=== PATIENT | male | born 1945 | race Caucasian/White ===

== ENCOUNTER 2024-03-03 11:37 | Inpatient (IN) | payer OTHER, SELFPAY ==
[2024-03-03 13:11] LABS: Absolute Monocytes 0.7 K/uL (0.1-1.3); Absolute Neutrophil 4.4 K/uL (1.8-8.0); Basophils % 0.4 % (0-1.3); Eosinophils % 0.7 % (0-4.4); Hematocrit 45.4 % (39.6-49.0); Lymphocytes % 15.9 % (15.3-44.8); MCHC 32.9 g/dL (32.0-36.0); MCV 91.3 fL (80-100); MPV 9.5 fL (7.6-11.3); PT Prothrombin Time 11.2 SECONDS (9.4-12.5); PTT, Activated Partial Thromb 26.9 SECONDS (24.3-36.9); Platelets 141 thou/uL (152-406); RBC Red Blood Cell Count 4.98 M/uL (4.33-5.43); Red Cell Distribution Width 13.6 % (12.1-15.2)
[2024-03-03 13:26] LABS: Albumin 3.5 g/dL (3.4-5.0); Bilirubin Total 0.5 mg/dL (0.2-1.0); Globulin 3.5 g/dL (2.3-3.5); Troponin High Sensitivity 12.7 pg/mL (<58.9)
--- NOTE | 2024-03-03 13:40 | RAD REPORT ---
EXAM: CT brain without contrast HISTORY: Confusion/alteration of consciousness. COMPARISON: None TECHNIQUE: Multiple contiguous axial images were obtained and a CT of the brain without contrast.. Sagittal and coronal reconstruction performed. Automated exposure control, adjustment of the mA and/or kV according to patient size, and/or iterative reconstruction. Unless otherwise specified, incidental f indings do not require dedicated imaging follow-up FINDINGS: An intracranial bleed is not seen Ventricles are moderately dilated. No extra-axial fluid collection noted 2 cm low-density area left frontal lobe has the appearance of margin. No fluid within the visualized sinuses or mastoids noted. IMPRESSION: Moderate dilatation of the ventricles probably the sequela of cerebral atrophy. Normal pressure hydro cephalus can also have this appearance and should be correlated clinically.
--- NOTE | 2024-03-03 14:03 | RAD REPORT ---
Procedure: Chest Single View HISTORY: Weakness COMPARISON: none FINDINGS: The lungs appear clear of acute infiltrate. No significant pleural effusion noted. The heart is normal size. IMPRESSION: No acute abnormality is displayed.
--- NOTE | 2024-03-03 14:30 | ER ---
Nurse's Notes [facility] Name: Georgi Soriano Age: 79 yrs Sex: Male : 1945 Arrival Date: 03/03/2024 Time: 11:37 Bed 17 Private MD: Diagnosis: Altered mental status, unspecified;Muscle weakness (generalized) Presentation: 03/03 12:01 Chief complaint: EMS states: DIRECTOR OF CASEWORK DEPARTMENT CALLED EMS FOR "NOT ACTING RIGHT". bp Coronavirus screen: At this time, the client does not indicate any symptoms associated with coronavirus-19. Ebola Screen: No symptoms or risks identified at this time. Initial Sepsis Screen: Does the patient meet any 2 criteria? No. Patient's initial sepsis screen is negative. Does the patient have a suspected source of infection? No. Patient's initial sepsis screen is negative. Risk Assessment: Do you want to hurt yourself or someone else? Patient reports no desire to harm self or others. Onset of symptoms is unknown. Care prior to arrival: Glucose check: 140. 12:01 Method Of Arrival: EMS: [facility] bp 12:01 Acuity: TAMMY 3 bp Triage Assessment: 12:02 General: Appears in no apparent distress. comfortable, Behavior is calm, cooperative. bp Pain: Denies pain. EENT: No deficits noted. Neuro: Level of Consciousness is awake, obeys commands, confused, Oriented to person, place. Cardiovascular: Rhythm is sinus rhythm. Respiratory: No deficits noted. GI: No signs and/or symptoms were reported involving the gastrointestinal system. : No signs and/or symptoms were reported regarding the genitourinary system. Derm: No deficits noted. Musculoskeletal: No deficits noted. Historical: - Allergies: 12:02 No Known Allergies; bp - Home Meds: 12:02 Unable to obtain [Active]; bp - PMHx: 12:02 Unable to Obtain; bp - Immunization history:: Adult Immunizations unknown. - Infectious Disease History:: Denies. - Social history:: Smoking status: unknown. - Family history:: not pertinent. - Hospitalizations: : No recent hospitalization is reported. Screenin:00 [facility] ED Fall Risk Assessment (Adult) History of falling in the last 3 months, bp including since admission No falls in past 3 months (0 pts) Confusion or Disorientation No (0 pts) Intoxicated or Sedated No (0 pts) Impaired Gait No (0 pts) Mobility Assist Device Used No (0 pt) Altered Elimination No (0 pt) Score/Fall Risk Level 0 - 2 = Low Risk Oriented to surroundings. Abuse screen: Denies threats or abuse. Denies injuries from another. Nutritional screening: No deficits noted. Tuberculosis screening: No symptoms or risk factors identified. Assessment: 12:05 General: Appears in no apparent distress. Behavior is calm, cooperative. bp 14:00 Reassessment: Patient appears in no apparent distress at this time. No changes from bp previously documented assessment. 15:00 Reassessment: Patient appears in no apparent distress at this time. Patient and/or bp family updated on plan of care and expected duration. Pain level reassessed. 15:45 Reassessment: REPORT FAXED RM 215. bp Vital Signs: 12:01 BP 111 / 65; Pulse 67; Resp 16; Temp 98; Pulse Ox 96% ; bp 15:00 BP 137 / 66; Pulse 59; Resp 16; Temp 97.9; Pulse Ox 99% ; bp NIH Stroke Scale Scores: 13:16 NIHSS Score: 0 airborne operations Course: 11:43 Patient arrived in ED. eb 11:43 Mikel Leo MD is Attending Physician. rn 12:01 Robbie Calle RN is Primary Nurse. bp 12:02 Triage completed. bp 12:02 Arm band placed on. bp 12:35 Chest Single View XRAY In Process Unspecified. EDMS 12:45 Initial lab(s) drawn, by md, sent to lab. First set of blood cultures drawn by me, bp Second set of blood cultures drawn by me, EKG done, by ED staff, reviewed by Mikel Leo MD. Inserted saline lock: 20 gauge in right forearm, using aseptic technique. Blood collected. Flushed with 10 mL NS. 13:21 CT Head Brain wo Cont In Process Unspecified. EDMS 14:28 Fidel Maravilla MD is Hospitalizing Provider. rn 15:00 Patient has correct armband on for positive identification. bp 15:00 No provider procedures requiring assistance completed. bp 15:37 Patient admitted, IV remains in place. bp 16:44 Provided Education on: need for admit. ll1 Administered Medications: 12:46 Drug: NS 0.9% IV 500 ml 500 ml IV at 1 bolus once; to be given as a bolus over 30 bp minutes Volume: 500 ml; Route: IV; Rate: 1 bolus; Site: right forearm; Medication: 15:00 VIS not applicable for this client. bp Outcome: 14:29 Decision to Hospitalize by Provider. rn 16:44 Patient left the ED. ll1 16:44 Admitted to Med/surg ll1 16:44 Condition: stable 16:44 Instructed on the need for admit, NIH Stroke Scale - NIH Stroke Score Date: 03/03/2024 Time: 13:16 Total Score = 0 10. Dysarthria (speech clarity - read or repeat words) - 0(Normal) 11. Extinction and Inattention (visual/tactile/auditory/spatial/personal) - 0(No abnormality) 1a. Level of Consciousness (LOC) - 0(Alert) 1b. Level of Consciousness (LOC) (Month \\T\\ Age) - 0(Both) 1c. LOC Commands (Open \\T\\ Closes Eyes/Home Coordinator) - 0(Both) 2. Best Gaze (Lateral Gaze Paresis) - 0(Normal) 3. Visual Field Loss - 0(No visual loss) 4. Facial Palsy - 0(Normal) 5a. Left Arm: Motor (10-second hold) - 0(No drift) 5b. Right Arm: Motor (10-second hold) - 0(No drift) 6a. Left Leg: Motor (5-second hold - always test supine) - 0(No drift) 6b. Right Leg: Motor (5-second hold - always test supine) - 0(No drift) 7. Limb Ataxia (finger/nose \\T\\ heel/hollins - test with eyes open) - 0(Absent) 8. Sensory Loss (pinprick arms/legs/face) - 0(Normal) 9. Best Language: Aphasia (description/naming/reading) - 0(No aphasia) Initials: rn Signatures: Dispatcher [employer] EDMikel Joseph MD MD rn Peltier, Brian, RN RN bp Botello, Elizabeth eb Lewis, Lynsay, RN RN 1
--- NOTE | 2024-03-03 14:30 | EDPHYS ---
Physician Documentation [facility] Name: Georgi Soriano Age: 79 yrs Sex: Male : 1945 Arrival Date: 03/03/2024 Time: 11:37 Bed 17 Private MD: ED Physician Mikel Leo HPI: 03/03 14:26 This 79 yrs old Male presents to ER via EMS with complaints of weakness, AMS. rn 14:26 The patient presents with confusion, decreased responsiveness. Onset: The rn symptoms/episode began/occurred at an unknown time. Associated signs and symptoms: Pertinent positives: weakness, Pertinent negatives: abdominal pain, chest pain. Current symptoms: In the emergency department the patient's symptoms are unchanged from the initial presentation. The patient has not experienced similar symptoms in the past. Patient was noted to be acting strange with generalized weakness and possibly confusion while riding a bus. sales route driver has seen him before and told EMS he seems weaker than normal. Patient denies focal weakness or numbness. Patient reports feels weak all over. No chest pain or shortness of breath. No abdominal pain. No blood in stool. No new medication. No fever or recent illness.. Historical: - Allergies: 12:02 No Known Allergies; bp - Home Meds: 12:02 Unable to obtain [Active]; bp - PMHx: 12:02 Unable to Obtain; bp - Immunization history:: Adult Immunizations unknown. - Infectious Disease History:: Denies. - Social history:: Smoking status: unknown. - Family history:: not pertinent. - Hospitalizations: : No recent hospitalization is reported. ROS: 14:26 Constitutional: Negative for fever, chills, and weight loss, Eyes: Negative for injury, rn pain, redness, and discharge, Neck: Negative for injury, pain, and swelling, Cardiovascular: Negative for chest pain, palpitations, and edema, Respiratory: Negative for shortness of breath, cough, wheezing, and pleuritic chest pain, Abdomen/GI: Negative for abdominal pain, nausea, vomiting, diarrhea, and constipation, Back: Negative for injury and pain, MS/Extremity: Negative for injury and deformity, Skin: Negative for injury, rash, and discoloration, Neuro: Positive for generalized weakness Exam: 14:26 Constitutional: This is a well developed, well nourished patient who is awake, alert, rn and in no acute distress. Head/Face: Normocephalic, atraumatic. ENT: Dry mucous membranes Cardiovascular: Regular rate and rhythm. No pulse deficits. Respiratory: No increased work of breathing, no retractions or nasal flaring. Abdomen/GI: Soft, non-tender MS/ Extremity: Pulses equal, no cyanosis. Neuro: Awake and alert, GCS 15, oriented to person, place, time, and situation. Cranial nerves II-XII grossly intact. Motor strength 4/5 in all extremities. Sensory grossly intact. Vital Signs: 12:01 BP 111 / 65; Pulse 67; Resp 16; Temp 98; Pulse Ox 96% ; bp 15:00 BP 137 / 66; Pulse 59; Resp 16; Temp 97.9; Pulse Ox 99% ; bp NIH Stroke Scale Scores: 13:16 NIHSS Score: 0 rn MDM: 11:43 Medical Screening Exam initiated rn 13:15 ED course: Sent ECG and attempted to contact advertising vice president Dr. Ivey, waiting for rn callback.. 13:38 ED course: Consulted with Dr. Ivey, states believes his progression of right bundle rn branch block and not STEMI due to negative troponin and patient has, absence of dyspnea or diaphoresis. zero chest pain. he would like a stat echo to check for wall motion abnormalities and will make a decision based off of that.. 14:07 ED course: Dr. Ivey performed a bedside echo with ultrasound machine, reports good EF rn with lack of wall motion abnormalities. He does not believe that this is a STEMI or ischemic event.. 14:26 Differential Diagnosis: CVA, electrolyte abnormality, pneumonia, UTI, volume depletion. rn Data reviewed: vital signs, nurses notes, lab test result(s), EKG, radiologic studies, CT scan, plain films, and as a result, I will admit patient. Consideration of Admission/Observation Patient was admitted/placed on observation. Escalation of care including admission/observation considered. Counseling: I had a detailed discussion with the patient and/or guardian regarding the historical points, exam findings, and any diagnostic results supporting the discharge/admit diagnosis, lab results, radiology results, the need for further work-up and treatment in the hospital. 03/03 11:44 Order name: Blood Culture Adult (2) rn 03/03 11:44 Order name: CBC with Diff; Complete Time: 13:23 rn 03/03 11:44 Order name: CMP; Complete Time: 13:36 rn 03/03 11:44 Order name: Lactate w/ 2H reflex if indic.; Complete Time: 13:36 rn 03/03 11:44 Order name: Protime (+inr); Complete Time: 13:23 rn 03/03 11:44 Order name: Ptt, Activated; Complete Time: 13:23 rn 03/03 11:44 Order name: Urinalysis w/ reflexes rn 03/03 11:44 Order name: Flu; Complete Time: 13:36 rn 03/03 12:31 Order name: LAB Add On eb 03/03 13:06 Order name: Troponin High Sensitivity; Complete Time: 13:36 EDCA 03/03 13:06 Order name: NT PRO-BNP; Complete Time: 13:36 EDCA 03/03 15:49 Order name: CBC with Automated Diff [facility] 03/03 15:49 Order name: CBC with Automated Diff [facility] 03/03 15:49 Order name: Comprehensive Metabolic Panel [facility] 03/03 15:49 Order name: Comprehensive Metabolic Panel [facility] 03/03 15:49 Order name: Lipid Profile [facility] 03/03 15:49 Order name: Lipid Profile [facility] 03/03 15:49 Order name: Troponin High Sensitivity [facility] 03/03 15:49 Order name: Troponin High Sensitivity [facility] 03/03 15:49 Order name: Troponin High Sensitivity [facility] 03/03 15:49 Order name: Troponin High Sensitivity [facility] 03/03 11:44 Order name: CT Head Brain wo Cont; Complete Time: 14:09 03/03 11:44 Order name: Chest Single View XRAY; Complete Time: 14:09 03/03 13:29 Order name: Echo with Doppler [facility] 03/03 11:44 Order name: Accucheck; Complete Time: 12:40 rn 03/03 11:44 Order name: Cardiac monitoring; Complete Time: 12:40 rn 03/03 11:44 Order name: EKG - Nurse/Tech; Complete Time: 12:40 rn 03/03 11:44 Order name: IV Saline Lock - Large Bore; Complete Time: 12:41 rn 03/03 11:44 Order name: Labs collected and sent; Complete Time: 12:41 rn 03/03 11:44 Order name: O2 Per Protocol; Complete Time: 12:41 rn 03/03 11:44 Order name: O2 Sat Monitoring; Complete Time: 12:41 rn 03/03 11:44 Order name: Vital Signs; Complete Time: 12:41 rn Administered Medications: 12:46 Drug: NS 0.9% IV 500 ml 500 ml IV at 1 bolus once; to be given as a bolus over 30 bp minutes Volume: 500 ml; Route: IV; Rate: 1 bolus; Site: right forearm; Disposition Summary: 03/03/24 14:29 Hospitalization Ordered Notes: Hospitalization Status: Observation rn Provider: Fidel Maravilla rn Location: Telemetry/MedSurg (observation) rn Condition: Stable rn Problem: new rn Symptoms: have improved rn Bed/Room Type: Standard rn Room Assignment: 215(03/03/24 15:28) eb Diagnosis - Altered mental status, unspecified rn - Muscle weakness (generalized) rn Forms: - Medication Reconciliation Form rn - SBAR form rn - Leadership Thank You Letter rn NIH Stroke Scale - NIH Stroke Score Date: 03/03/2024 Time: 13:16 Total Score = 0 10. Dysarthria (speech clarity - read or repeat words) - 0(Normal) 11. Extinction and Inattention (visual/tactile/auditory/spatial/personal) - 0(No abnormality) 1a. Level of Consciousness (LOC) - 0(Alert) 1b. Level of Consciousness (LOC) (Month \T\ Age) - 0(Both) 1c. LOC Commands (Open \T\ Closes Eyes/Assistant Credit Manager) - 0(Both) 2. Best Gaze (Lateral Gaze Paresis) - 0(Normal) 3. Visual Field Loss - 0(No visual loss) 4. Facial Palsy - 0(Normal) 5a. Left Arm: Motor (10-second hold) - 0(No drift) 5b. Right Arm: Motor (10-second hold) - 0(No drift) 6a. Left Leg: Motor (5-second hold - always test supine) - 0(No drift) 6b. Right Leg: Motor (5-second hold - always test supine) - 0(No drift) 7. Limb Ataxia (finger/nose \T\ heel/hollins - test with eyes open) - 0(Absent) 8. Sensory Loss (pinprick arms/legs/face) - 0(Normal) 9. Best Language: Aphasia (description/naming/reading) - 0(No aphasia) Initials: rn Signatures: Dispatcher [employer] [facility] Mikel Leo MD MD rn Peltier, Brian, Deja Melo RN Corrections: (The following items were deleted from the chart) 11:45 11:45 Chest Single View+RAD.[email or web address].BRZ ordered. [facility] 14:28 14:26 Constitutional: This is a well developed, well nourished patient who is rn awake, alert, and in no acute distress. Head/Face: Normocephalic, atraumatic. Cardiovascular: Regular rate and rhythm. No pulse deficits. Respiratory: No increased work of breathing, no retractions or nasal flaring. Abdomen/GI: Soft, non-tender MS/ Extremity: Pulses equal, no cyanosis. Neuro: Awake and alert, GCS 15, oriented to person, place, time, and situation. Cranial nerves II-XII grossly intact. Motor strength 4/5 in all extremities. Sensory grossly intact. rn 15:28 14:29 luisito santana
[2024-03-03] MEDS ORDERED: ONDANSETRON 4 MG/2 ML VIAL IV PRN (15:44)
[2024-03-03] MEDS ORDERED: ACETAMINOPHEN 500 MG TAB PO PRN (15:44)
--- NOTE | 2024-03-03 15:52 | P.HP ---
Certification for Inpatient Patient admitted to: Inpatient With expected LOS: >2 Midnights Patient will require the following post-hospital care: None Practitioner: I am a practitioner with admitting privileges, knowledge of patient current condition, hospital course, and medical plan of care. Services: Services provided to patient in accordance with Admission requirements found in Title 42 Section 412.3 of the Code of Federal Regulations <MaravillaNorbertoadrian Narvaez - Last Filed: 03/03/24 15:52> Patient History Date of Service: 03/03/24 <Fidel Maravilla - Last Filed: 03/03/24 15:52> Reason for admission: Altered mental status History of Present Illness: 79-year-old male presented to the emergency room with altered mental status, generalized weakness. He presented by EMS after a director business management reported seeing him with confusion, worse moderate to severe generalized weakness, on physical exam, confused, fever, no chest pain, abdominal pain, nausea vomiting diarrhea, admitted for acute metabolic encephalopathy, altered mental status, generalized weakness <Nayely Blum - Last Filed: 03/06/24 09:03> Allergies No Known Allergies Allergy (Unverified 03/03/24 13:25) Review of Systems 10-point ROS is otherwise unremarkable General: As per HPI <Nayely Blum - Last Filed: 03/06/24 09:03> Physical Examination - Studies Laboratory Data (last 24 hrs) 03/03/24 03/03/24 03/03/24 12:41 12:41 12:41 WBC 6.20 Hgb 15.0 Hct 45.4 Plt Count 141 L PT 11.2 INR 1.00 APTT 26.9 Sodium 142 Potassium 4.0 BUN 32 H Creatinine 1.22 Glucose 133 H Total Bilirubin 0.5 AST 17 ALT 19 Alkaline Phosphatase 53 Microbiology Data (last 24 hrs): 03/03/24 12:41 Nasopharnyx Influenza Type A Antigen Screen - Final 03/03/24 12:41 Nasopharnyx Influenza Type B Antigen Screen - Final <Fidel Maravilla - Last Filed: 03/03/24 15:52> - Physical Exam General: Alert, In no apparent distress, Oriented x2 HEENT: Atraumatic, Normocephalic Neck: Supple, 2+ carotid pulse no bruit Respiratory: Clear to auscultation bilaterally, Normal air movement Cardiovascular: Normal pulses, Regular rate/rhythm, Normal S1 S2 Capillary refill: <2 Seconds Gastrointestinal: Normal bowel sounds, Soft and benign Musculoskeletal: No clubbing, No swelling Integumentary: No breakdown, No significant lesion Neurological: Normal speech, Cranial nerves 3-12 intact, Other (confused), Abnormal gait <Nayely Blum - Last Filed: 03/06/24 09:03> Assessment & Plan - Advance Directives Does patient have a Living Will: No Does patient have a Durable POA for Healthcare: No <Fidel Maravilla - Last Filed: 03/03/24 15:52> - Problems (Diagnosis) (1) Acute cystitis Current Visit: Yes Status: Acute (2) Metabolic encephalopathy Current Visit: Yes Status: Acute (3) Elevated brain natriuretic peptide (BNP) level Current Visit: Yes Status: Acute (4) Right bundle branch block Current Visit: Yes Status: Acute (5) Unsteady gait when walking Current Visit: Yes Status: Acute - Plan Admit to [facility], Confusion, likely secondary to metabolic encephalopathy secondary to UTI, Family notified by [facility]'s department patient was brought to the emergency room Dr. Ivey was consulted, evaluated patient in the emergency room, EKG was revi ewed with the ED physician for right bundle branch block, no chest pain, mildly elevated BNP Telemetry, echo ordered Chest x-ray, CT of the head reviewed negative for acute changes, Fall precautions IV antibiotics, IV fluids for acute cystitis Blood cultures, urine cultures Full code DVT SCDs Cardiac diet Disposition pending hospital course-nurses spoke with patient's yesterday, stated she would be here on Friday, nurse talked to patient's daughter, Discharge Plan: Home - Code Status/Comfort Care Code Status: Full Code Critical Care: No Time Spent Managing PTS Care (In Minutes): 45 Critical Care: No <Nayely Blum - Last Filed: 03/06/24 09:03>
[2024-03-03 17:52] VITALS: BMI 26.6
[2024-03-03] MEDS: D5 0.9 NS 1,000 ML IV SCH (18:33)
[2024-03-03] MEDS: METOPROLOL TARTRATE 5 MG/5 ML INJ IV ONE (21:46)
[2024-03-03] MEDS: METOPROLOL TARTRATE 5 MG/5 ML INJ IV STA (22:10)
[2024-03-04 00:52] LABS: Specific Gravity 1.025 (1.005-1.030); Sqamous Epithelial None Seen /HPF (None Seen); Urine Bacteria <20 /HPF (<20); Urine Bilirubin NEGATIVE (Negative); Urine Blood Negative (Negative); Urine Clarity Extremely Turbid (Clear); Urine Color Light-Yellow (Yellow); Urine Culture Reflex Order REFLEXED; Urine Glucose NEGATIVE (Negative); Urine Ketones NEGATIVE (Negative); Urine Microscopic Reflex YN ORDER UMIC; Urine Mucus Slight /HPF (None Seen); Urine Nitrite NEGATIVE (Negative); Urine Protein TRACE (Negative); Urine Urobilinogen Normal (Normal); Urine WBC >50 /HPF (<5); Urine pH 5.5 (5.0-7.0)
[2024-03-04 04:46] VITALS: O2SAT 96
[2024-03-04 05:35] LABS: Absolute Eosinophils 0.1 K/uL (0-0.5); Absolute Lymphocytes (CBC) 1.3 K/uL (0.7-4.9); Absolute Monocytes 0.9 K/uL (0.1-1.3); Absolute Neutrophil 3.7 K/uL (1.8-8.0); Basophils % 0.6 % (0-1.3); Eosinophils % 1.5 % (0-4.4); Hematocrit 42.6 % (39.6-49.0); Hemoglobin 14.3 g/dL (13.6-17.9); Lymphocytes % 21.7 % (15.3-44.8); MCH 30.5 pg (27.0-35.0); MCHC 33.6 g/dL (32.0-36.0); MCV 90.8 fL (80-100); MPV 8.9 fL (7.6-11.3); Monocytes % 14.3 % (3.3-12.3); Neutrophils % 61.9 % (41.7-73.7); Nucleated Red Blood Cells % 0.1 % (0-0); Platelets 140 thou/uL (152-406); RBC Red Blood Cell Count 4.69 M/uL (4.33-5.43); Red Cell Distribution Width 13.5 % (12.1-15.2)
[2024-03-04 05:55] LABS: ALT/SGPT 17 U/L (16-61); Albumin 3.2 g/dL (3.4-5.0); Albumin/Globulin Ratio 0.9 (1.1-1.8); Alkaline Phosphatase 51 U/L (45-117); Anion Gap 5.8 mEq/L (5.0-15.0); BUN Blood Urea Nitrogen 27 mg/dL (7-18); Bicarbonate 28 mEq/L (21-32); Bilirubin Total 0.4 mg/dL (0.2-1.0); Globulin 3.4 g/dL (2.3-3.5); Glomerular Filtration Rate 88 ml/min (=/>90); Glucose Level 113 mg/dL (74-106); HDL Cholesterol 45 mg/dL (40-60); LDL Cholesterol, Calculated 82 mg/dL (<130); LDL Cholesterol,Calc NonReport 82; Potassium 3.8 mEq/L (3.5-5.1); Protein, Total 6.6 g/dL (6.4-8.2); Sodium Level 144 mEq/L (136-145); Troponin High Sensitivity 15.3 pg/mL (<58.9)
[2024-03-04 06:00] LABS: AST/SGOT < 10 U/L (15-37)
--- NOTE | 2024-03-04 09:22 | P.PN ---
Subjective Date of Service: 03/04/24 Confused, admitted with altered mental status, generalized weakness, Review of Systems General: As per HPI Physical Examination - Vital Signs Temperature: 97.5 F Blood Pressure: 178/86 Pulse: 56 Respirations: 18 Pulse Ox (%): 96 - Physical Exam General: Alert, In no apparent distress, Oriented x1, Other HEENT: Atraumatic, Normocephalic Neck: Supple, JVD not distended Respiratory: Clear to auscultation bilaterally, Normal air movement Cardiovascular: Normal pulses, Regular rate/rhythm, Normal S1 S2 Capillary refill: <2 Seconds Gastrointestinal: Normal bowel sounds, Soft and benign Musculoskeletal: Other (Generalized weak) Integumentary: No breakdown, No significant lesion Neurological: Normal speech, Normal strength at 5/5 x4 extr, Other (Generalized weak), Abnormal gait - Studies Laboratory Data (last 24 hrs) 03/03/24 03/03/24 03/03/24 12:41 12:41 12:41 WBC 6.20 Hgb 15.0 Hct 45.4 Plt Count 141 L PT 11.2 INR 1.00 APTT 26.9 Sodium 142 Potassium 4.0 BUN 32 H Creatinine 1.22 Glucose 133 H Total Bilirubin 0.5 AST 17 ALT 19 Alkaline Phosphatase 53 Microbiology Data (last 24 hrs): 03/03/24 12:41 Nasopharnyx Influenza Type A Antigen Screen - Final 03/03/24 12:41 Nasopharnyx Influenza Type B Antigen Screen - Final Assessment And Plan - Current Problems (Diagnosis) (1) Acute cystitis Current Visit: Yes Status: Acute (2) Metabolic encephalopathy Current Visit: Yes Status: Acute (3) Elevated brain natriuretic peptide (BNP) level Current Visit: Yes Status: Acute (4) Right bundle branch block Current Visit: Yes Status: Acute (5) Unsteady gait when walking Current Visit: Yes Status: Acute - Plan Admit to [facility], Confusion, likely secondary to metabolic encephalopathy secondary to UTI, Family notified by Associate Financial Analyst's department patient was brought to the emergency room Dr. Ivey was consulted, evaluated patient in the emergency room, EKG was revi ewed with the ED physician for right bundle branch block, no chest pain, mildly elevated BNP Telemetry, echo ordered Chest x-ray, CT of the head reviewed negative for acute changes, Fall precautions IV antibiotics, IV fluids for acute cystitis Blood cultures, urine cultures Full code DVT SCDs Cardiac diet Disposition pending hospital course-nurses spoke with patient's yesterday, stated she would be here on Friday, nurse talked to patient's daughter, Discharge Plan: Home - Code Status/Comfort Care Code Status: Full Code Critical Care: No Time Spent Managing PTS Care (In Minutes): 25
[2024-03-04] MEDS: NA CHLORIDE 0.9% 1,000 ML IV SCH (21:44)
[2024-03-05] MEDS: HYDRALAZINE HCL 20 MG/ML VIAL IV PRN (05:02)
[2024-03-05 05:40] LABS: Anion Gap 7.6 mEq/L (5.0-15.0); Potassium 3.6 mEq/L (3.5-5.1); Troponin High Sensitivity 16.3 pg/mL (<58.9)
[2024-03-05] MEDS: HYDRALAZINE HCL 25 MG TABLET PO PRN (16:08)
--- NOTE | 2024-03-05 18:06 | P.PN ---
Date of Service: 03/05/24 Subjective Confused, admitted with altered mental status, generalized weakness, Review of Systems General: As per HPI Physical Examination - Vital Signs Reviewed - Physical Exam General: Alert, In no apparent distress, Oriented x 2 HEENT: Atraumatic, Normocephalic Respiratory: Clear to auscultation bilaterally, Normal air movement Cardiovascular: Normal pulses, Regular rate/rhythm, Normal S1 S2 Gastrointestinal: Normal bowel sounds, Soft and benign Musculoskeletal: Other (Generalized weak) Neurological: Normal speech, Normal strength at 5/5 x4 extr, Other (Generalized weak), Abnormal gait Assessment And Plan - Current Problems (Diagnosis) (1) Acute cystitis Current Visit: Yes Status: Acute (2) Metabolic encephalopathy Current Visit: Yes Status: Acute (3) Elevated brain natriuretic peptide (BNP) level Current Visit: Yes Status: Acute (4) Right bundle branch block Current Visit: Yes Status: Acute (5) Unsteady gait when walking Current Visit: Yes Status: Acute - Plan Admit to [facility], Confusion, likely secondary to metabolic encephalopathy secondary to UTI, Family notified by Operating Systems Programmer's department patient was brought to the emergency room Raslan consulted, evaluated patient in the emergency room, EKG was reviewed with the ED physician for right bundle branch block, no chest pain, mildly elevated BNP Telemetry, echo ordered Chest x-ray, CT of the head reviewed negative for acute changes, Fall precautions IV antibiotics, IV fluids for acute cystitis Blood cultures, urine cultures Full code DVT SCDs Cardiac diet Disposition pending hospital course-nurses spoke with patient's yesterday, stated she would be here on Friday, nurse talked to patient's daughter, Discharge Plan: Home - Code Status/Comfort Care Code Status: Full Code Critical Care: No Time Spent Managing PTS Care (In Minutes): 25
[2024-03-05] MEDS: CEFTRIAXONE 2,000 MG in NA CHLORIDE 0.9% 100 ML IV SCH (20:05)
[2024-03-06 06:11] LABS: Anion Gap 7.8 mEq/L (5.0-15.0); Potassium 3.8 mEq/L (3.5-5.1); Troponin High Sensitivity 13.3 pg/mL (<58.9)
--- NOTE | 2024-03-06 08:58 | P.DS ---
Admission Date: 03/03/24 Discharge Date: 03/06/24 Disposition: DC HOME/HOME HEALTH CARE Discharge Condition: GOOD - Problems (1) Acute cystitis Status: Acute (2) Metabolic encephalopathy Status: Acute (3) Elevated brain natriuretic peptide (BNP) level Status: Acute (4) Right bundle branch block Status: Acute (5) Unsteady gait when walking Status: Acute Brief History of Present Illness: 79-year-old male presented to the emergency room with altered mental status, generalized weakness. He presented by EMS after a business risk consultant reported seeing him with confusion, worse moderate to severe generalized weakness, on physical exam, confused, fever, no chest pain, abdominal pain, nausea vomiting diarrhea, admitted for acute metabolic encephalopathy, altered mental status, generalized weakness - Physical Exam General: Alert, In no apparent distress, Oriented x1, Other HEENT: Atraumatic, Normocephalic Neck: Supple, JVD not distended Respiratory: Clear to auscultation bilaterally, Normal air movement Cardiovascular: Normal pulses, Regular rate/rhythm, Normal S1 S2 Capillary refill: <2 Seconds Gastrointestinal: Normal bowel sounds, Soft and benign Musculoskeletal: Other (Generalized weak) Integumentary: No breakdown, No significant lesion Neurological: Normal speech, Normal strength at 5/5 x4 extr, Other (Generalized weak), Abnormal gait Hospital Course: 79-year-old male presented to the emergency room with altered mental status, generalized weakness. He presented by EMS after a business risk consultant reported seeing him with confusion, worse moderate to severe generalized weakness, on physical exam, confused, fever, no chest pain, abdominal pain, nausea vomiting diarrhea, admitted for acute metabolic encephalopathy, altered mental status, generalized weakness, family was notified of [facility] inpatient hospitalization. Patient was noted to have acute cystitis, metabolic encephalopathy, elevated BNP, right bundle branch block, unsteady gait. He was evaluated by PT, cardiology, started on IV antibiotics. Improved during hospitalization, evaluated by PT, tolerating diet, stable to discharge home, follow-up with PCP in 1 week. Plan to discharge home with home health, physical therapy, shelter for unsteady gait Assessment Metabolic encephalopathy -mentation improving on antibiotics. Secondary to UTI treated with IV antibiotics, will discharge home on p.o. antibiotics Acute cystitis discharged home on p.o. antibiotics Elevated BNP/right bundle branch block was evaluated by cardiology while inpatient, no intervention needed Unsteady gait nutrition worker did a welfare check at home to evaluate living condition. GOAL: Clear understanding of disease process INSTRUCTIONS: Physician Discharge Instructions: -Follow-up with PCP in 1 to 2 weeks -Please call Dr. Maravilla at [phone] if any questions regarding hospital stay -Please call nursing station at [phone] if any nursing or medication ques tions -Return to the emergency room if symptoms worsen Diet: ADA, low sodium Activity: Fall precautions Vital Signs/Physical Exam: Temp Pulse Resp BP Pulse Ox 98 F 71 16 140/64 95 03/06/24 04:00 03/06/24 04:00 03/06/24 04:00 03/06/24 04:00 03/06/24 04:00 Laboratory Data at Discharge: WBC 6.00 thou/uL (4.3-10.9) 03/04/24 05:20 Hgb 14.3 g/dL (13.6-17.9) 03/04/24 05:20 Hct 42.6 % (39.6-49.0) 03/04/24 05:20 Plt Count 140 thou/uL (152-406) L 03/04/24 05:20 PT 11.2 SECONDS (9.4-12.5) 03/03/24 12:41 INR 1.00 03/03/24 12:41 APTT 26.9 SECONDS (24.3-36.9) 03/03/24 12:41 Sodium 137 mEq/L (136-145) 03/06/24 05:29 Potassium 3.8 mEq/L (3.5-5.1) 03/06/24 05:29 BUN 13 mg/dL (7-18) 03/06/24 05:29 Creatinine 0.65 mg/dL (0.70-1.30) L 03/06/24 05:29 Glucose 121 mg/dL (74-106) H 03/06/24 05:29 Total Bilirubin 0.4 mg/dL (0.2-1.0) 03/04/24 05:20 AST < 10 U/L (15-37) L 03/04/24 05:20 ALT 17 U/L (16-61) 03/04/24 05:20 Alkaline Phosphatase 51 U/L (45-117) 03/04/24 05:20 Triglycerides 115 mg/dL (<150) 03/04/24 05:20 Cholesterol 150 mg/dL (<200) 03/04/24 05:20 HDL Cholesterol 45 mg/dL (40-60) 03/04/24 05:20 Cholesterol/HDL Ratio 3.33 03/04/24 05:20 Home Medications: Amox/Clavulanate [Augmentin 875-125 Tab] 875 mg PO BID #10 tab 03/06/24 Amox/Clavulanate [Augmentin 875-125 Tab] 875 mg PO BID #10 tab 03/06/24 New Medications: Amox/Clavulanate [Augmentin 875-125 Tab] 875 mg PO BID #10 tab Amox/Clavulanate [Augmentin 875-125 Tab] 875 mg PO BID #10 tab Physician Discharge Instructions: PROBLEM: Confusion, urinary tract infection GOAL: Clear understanding of disease process INSTRUCTIONS: Diet: Low sodium Activity: Fall precautions COMMUNITY SERVICES Services Needed: Home Health [facility] Name of Company: [employer] Date or Referral: 03/06/24 79-year-old male presented to the emergency room with altered mental status, ge neralized weakness. He presented by EMS after a business risk consultant reported seeing him with confusion, worse moderate to severe generalized weakness, on physical exam, confused, fever, no chest pain, abdominal pain, nausea vomiting diarrhea, admitted for acute metabolic encephalopathy, altered mental status, generalized weakness, family was notified of [facility] department inpatient hospitalization. Patient was noted to have acute cystitis, metabolic encephalopathy, elevated BNP, right bundle branch block, unsteady gait. He was evaluated by PT, cardiology, started on IV antibiotics. Improved during hospitalization, evaluated by PT, tolerating diet, stable to discharge home, follow-up with PCP in 1 week. Plan to discharge home with home health, physical therapy, shelter for unsteady gait Assessment Metabolic encephalopathy -mentation improving on antibiotics. Secondary to UTI treated with IV antibiotics, will discharge home on p.o. antibiotics Acute cystitis discharged home on p.o. antibiotics Elevated BNP/right bundle branch block was evaluated by cardiology while inpatient, no intervention needed Unsteady gait nutrition worker did a welfare check at home to evaluate living condition. GOAL: Clear understanding of disease process INSTRUCTIONS: Physician Discharge Instructions: -Follow-up with PCP in 1 to 2 weeks -Please call Dr. Maravilla at [phone] if any questions regarding hospital stay -Please call nursing station at [phone] if any nursing or medication questions -Return to the emergency room if symptoms worsen Diet: ADA, low sodium Activity: Fall precautions Diet: Low sodium Activity: Fall precautions Followup: NONE,NONE [Primary Care Provider] - Shahid Ivey MD [ACTIVE - CAN ADMIT] - [facility] [UNKNOWN] - Time spent managing pt's care (in minutes): 45
[2024-03-06 09:14] VITALS: BP 171/79; TEMP 98.7
--- NOTE | 2024-03-07 14:19 | EKG ---
Test Date: 2024-03-03 Test Time: 12:27:48 [employer]: BP MEASUREMENT RESULTS: Intervals: Rate: 59 ND: 256 QRSD: 170 QT: 472 QTc: 467 [place]: P: 57 ND: 256 QRS: -75 T: -40 INTERPRETIVE STATEMENTS: Sinus bradycardia with 1st degree AV block Right bundle branch block Left anterior fascicular block Bifascicular block Voltage criteria for left ventricular hypertrophy Anteroseptal infarct, possibly acute T wave abnormality, consider inferior ischemia Abnormal ECG No previous ECG available for comparison Electronically Signed On 03-07-24 14:15:43 HEALTH/SAFETY JOB TITLES by Shahid Ivey
== END 2024-03-06 17:00 | disposition home health service (06) | DRG 689 ==
LOC: ER 11:37 → 2ND 15:44
PROVIDERS: ADMIT Hospitalist; ATTEND Hospitalist
DX: N30.00 Acute cystitis without hematuria (principal); G93.41 Metabolic encephalopathy; I45.10 Unspecified right bundle-branch block
CPT/HCPCS: 36415; 70450; 71045; 80048; 80053; 80061; 81001; 82947; 83605; 83880; 84484; 85025; 85610; 85730; 87040; 87077; 87086; 87088; 87186; 87804; 93005; 97116; 97163; 97530; 99285; J0360; J0696; J7030; J7042

== ENCOUNTER 2024-07-22 23:01 | Emergency (ER) | payer OTHER, BC ==
[2024-07-22 23:56] LABS: Absolute Lymphocytes (CBC) 0.1 K/uL (0.7-4.9); Absolute Monocytes 0.2 K/uL (0.1-1.3); Absolute Neutrophil 5.3 K/uL (1.8-8.0); Basophils % 0.4 % (0-1.3); Eosinophils % 0.2 % (0-4.4); Hemoglobin 9.7 g/dL (13.6-17.9); Lymphocytes % 1.4 % (15.3-44.8); MCH 30.5 pg (27.0-35.0); MCHC 34.4 g/dL (32.0-36.0); MCV 88.5 fL (80-100); MPV 8.3 fL (7.6-11.3); Monocytes % 2.9 % (3.3-12.3); Neutrophils % 95.1 % (41.7-73.7); Platelets 186 thou/uL (152-406); RBC Red Blood Cell Count 3.17 M/uL (4.33-5.43); Red Cell Distribution Width 13.8 % (12.1-15.2)
[2024-07-23] MEDS ORDERED: NA CHLORIDE 0.9% 1,000 ML ONE (00:01)
[2024-07-23 00:02] LABS: Specific Gravity 1.023 (1.005-1.030); Sqamous Epithelial None Seen /HPF (None Seen); Transitional Epithelial <5 /HPF (None Seen); Urine Bacteria None Seen /HPF (<20); Urine Bilirubin NEGATIVE (Negative); Urine Blood 1+ (Negative); Urine Clarity Extremely Turbid (Clear); Urine Color Light-Yellow (Yellow); Urine Culture Reflex Order NOT NEEDED; Urine Glucose NEGATIVE (Negative); Urine Ketones NEGATIVE (Negative); Urine Microscopic Reflex YN ORDER UMIC; Urine Mucus Slight /HPF (None Seen); Urine Nitrite NEGATIVE (Negative); Urine Protein 1+ (Negative); Urine RBC <5 /HPF (None Seen); Urine Urobilinogen Normal (Normal); Urine pH 5.5 (5.0-7.0)
[2024-07-23 00:15] LABS: Albumin 1.9 g/dL (3.4-5.0); Albumin/Globulin Ratio 0.5 (1.1-1.8); Anion Gap 8.9 mEq/L (5.0-15.0); Bilirubin Total 0.7 mg/dL (0.2-1.0); Globulin 3.7 g/dL (2.3-3.5); Potassium 2.9 mEq/L (3.5-5.1); Protein, Total 5.6 g/dL (6.4-8.2)
[2024-07-23 00:16] LABS: Troponin High Sensitivity 96.6 pg/mL (<58.9)
[2024-07-23 00:21] LABS: Influenza A Ag Negative; Influenza B Ag Negative; SARS-CoV-2 Antigen Rapid Res Negative (Negative)
[2024-07-23 01:17] LABS: PT Prothrombin Time 14.8 SECONDS (10-13.0); PTT, Activated Partial Thromb 25.7 SECONDS (27.2-37.4); Protime INR 1.32
[2024-07-23 01:19] LABS: Band Neutrophils 33 % (0-1); Blood Morphology Comment NOTED (NOT SEEN); Differential Total Cells Count 100; Lymphocytes 1 % (15-42); Monocytes 2 % (0-10); Platelet Estimate ADEQ; Polychromasia SLIGHT; Reactive Lymphocytes 1 %; Segmented Neutrophils 63 % (40-80)
[2024-07-23] MEDS ORDERED: POTASSIUM 25 MEQ EFFERV TAB ONE (03:13)
[2024-07-23] MEDS ORDERED: NA CHLORIDE 0.9% 250 ML ONE ×2 (03:14→17:48)
[2024-07-23] MEDS ORDERED: KCL 20 MEQ/100 mL IVPB 100 ML IV ONE (03:14)
[2024-07-23 03:50] LABS: CSF Glucose 98 mg/dL (40-70)
[2024-07-23 04:21] LABS: Body Fluid Source CSF; Fluid Total Volume 4 ml; Tube # #2
[2024-07-23 04:22] LABS: Appearance CLEAR (CLEAR); Color of Supernate Not Xanthochromic (Not Xantho); Color of fluid Colorless (COLORLESS)
[2024-07-23 04:38] LABS: Body Fluid Lymphocytes ND %; Body Fluid WBC 2 /mm^3; Fluid Total Cells Count ND
[2024-07-23 04:49] LABS: Appearance CLEAR (CLEAR); Body Fluid Source CSF; Color of Supernate Not Xanthochromic (Not Xantho); Color of fluid Colorless (COLORLESS); Tube # #4
[2024-07-23 04:55] LABS: Body Fluid Lymphocytes ND %; Body Fluid WBC 1 /mm^3; Fluid Total Cells Count ND
--- NOTE | 2024-07-23 05:01 | EDPHYS ---
Physician Documentation [facility] Name: Georgi Soriano Age: 79 yrs Sex: Male : 1945 Arrival Date: 07/22/2024 Time: 23:01 Bed 2 Private MD: ED Physician Jose Manuel De La Cruz HPI: 07/22 23:25 This 79 yrs old Male presents to ER via EMS with complaints of possible seizure. cp 23:25 The patient presents with decreased mental status. Onset: The symptoms/episode cp began/occurred at an unknown time. last known normal unknown. Possible causes: sepsis, the patient has had a history of a fever, reportedly as high as 105 degrees Fahrenheit, the patient lives in a fdc. Associated signs and symptoms: Pertinent positives: weakness, reported seizure. 23:25 Patient's baseline: Neuro: alert but confused, Motor: no deficits, Speech: normal. cp 23:25 MS reports Cefepime antibiotic and IV Acetaminophen given prior to arrival. EMS reports cp fever of 105 measured upon their arrival. Historical: - Allergies: 23:52 Unable to obtain; lg3 - Home Meds: 23:52 Unable to obtain [Active]; lg3 - PMHx: 23:52 Unable to Obtain; lg3 - PSHx: 23:52 Unable to Obtain; lg3 - Immunization history:: Adult Immunizations unknown. - Infectious Disease History:: unknown. AMS. - Social history:: Smoking status: unknown. ROS: 23:30 Constitutional: Positive for fever, cp 23:30 Respiratory: Positive for cough, cp 23:30 Neuro: Positive for altered mental status, 23:30 Skin: Negative for cellulitis, rash, cp 23:30 Constitutional: history per hpi cp Exam: 23:33 Constitutional: The patient appears in no acute distress, non-diaphoretic, non-toxic, cp well developed, well nourished, 23:33 Head/Face: Normocephalic, atraumatic. cp 23:33 Eyes: Periorbital structures: appear normal, Conjunctiva: normal, no exudate, no injection, Sclera: no appreciated abnormality, Lids and lashes: appear normal, bilaterally, 23:33 ENT: External ear(s): are unremarkable, Nose: is normal, Mouth: Lips: dry, Oral mucosa: dry, Posterior pharynx: Airway: no evidence of obstruction, patent, erythema, is not appreciated, exudate, is not appreciated, 23:33 Chest/axilla: Inspection: normal, Palpation: is normal, no crepitus, no tenderness, 23:33 Cardiovascular: Rate: normal, Rhythm: regular, Edema: is not appreciated, JVD: is not appreciated, 23:33 Respiratory: the patient does not display signs of respiratory distress, Respirations: labored breathing, is not present, intercostal retractions, are absent, shallow respirations, that is mild, Breath sounds: decreased breath sounds, that are mild, throughout, wheezing: is not appreciated, 23:33 Abdomen/GI: Inspection: abdomen appears normal, Bowel sounds: active, all quadrants, Palpation: abdomen is soft and non-tender, in all quadrants, 23:33 Back: CVA tenderness, is absent, vertebral tenderness, is not appreciated, 23:33 Skin: cellulitis, is not appreciated, no rash present. 23:33 Neuro: Orientation: Not oriented to person, place, time, situation, Mentation: confused, Motor: moves all fours, 23:57 ECG was reviewed by the Attending Physician. cp Vital Signs: 23:28 BP 130 / 58; Pulse 98; Resp 18; Temp 100.6(A); Pulse Ox 96% on 2 lpm NC; Weight 54.43 br2 kg; Height 5 ft. 10 in. ; 23:52 BP 128 / 56; Pulse 95; Resp 17 S; Temp 99.9(Ca); Pulse Ox 96% 2 lpm ; lg3 04/18 02:15 BP 120 / 65; Pulse 82; Resp 16 S; Pulse Ox 98% on 2 lpm NC; lg3 03:42 BP 124 / 68; Pulse 85; Resp 17 S; Pulse Ox 97% on 2 lpm NC; lg3 04:58 BP 107 / 59; Pulse 69; Resp 17; Pulse Ox 95% on 2 lpm NC; cp4 06:45 BP 126 / 70; Pulse 58; Resp 20 S; Pulse Ox 100% on 2 lpm NC; lg3 07:30 BP 145 / 70; Pulse 60; Resp 18 S; Temp 97.5(Ca); Pulse Ox 97% on 2 lpm NC; aa5 09:00 BP 137 / 67; Pulse 58; Resp 18 S; Temp 98(Ca); Pulse Ox 100% on 2 lpm NC; aa5 10:30 BP 135 / 58; Pulse 59; Resp 18 S; Temp 98.2(Ca); Pulse Ox 100% on 2 lpm NC; aa5 11:30 BP 141 / 71; Pulse 64; Resp 18 S; Temp 98.2(Ca); Pulse Ox 100% on 2 lpm NC; aa5 13:00 BP 137 / 64; Pulse 62; Resp 16 S; Temp 98.2(Ca); Pulse Ox 100% on 2 lpm NC; aa5 14:30 BP 153 / 72; Pulse 64; Resp 18 S; Temp 99(Ca); Pulse Ox 100% on 2 lpm NC; aa5 16:00 BP 163 / 84; Pulse 65; Resp 16 S; Temp 98.5(Ca); Pulse Ox 100% on 2 lpm NC; aa5 17:30 BP 161 / 83; Pulse 71; Resp 16 S; Temp 98.2(Ca); Pulse Ox 100% on 2 lpm NC; aa5 07/22 23:28 Body Mass Index 17.22 (54.43 kg, 177.8 cm) br2 Procedures: 03:14 Lumbar Puncture: Patient placed in left lateral decubitus position. Prepped with [facility] Betadine. Draped using sterile technique. clear fluid. Puncture site dressed with band aid, Patient tolerated well. MDM: 07/22 23:30 Differential Diagnosis: electrolyte abnormality, meningitis, pneumonia, seizure, cp sepsis, UTI, volume depletion. 23:36 Medical Screening Exam initiated [facility] 07/23 00:30 Post IV fluid administration reassessment for Sepsis: Client prescribed 30 mL/kg IVF. Sepsis focused reassessment complete. Heart: normal rate Lungs: Noted to be clear bilaterally. Current vital signs reviewed: Yes. Neuro: Neurological examination improved from previous exam. 03:15 Data reviewed: vital signs, nurses notes, lab test result(s), EKG, radiologic studies. [facility] 07/22 23:21 Order name: Blood Culture Adult (2) 07/22 23:21 Order name: CBC with Diff; Complete Time: 02:47 07/22 23:58 Interpretation: Normal except: RBC 3.17; HGB 9.7; HCT 28.0; JEANIE% 95.1; LYM% 1.4; MN% cp 2.9; LYMA 0.1. 07/22 23:21 Order name: CMP; Complete Time: 01:00 cp 07/23 01:00 Interpretation: Normal except: K 2.9; GLUC 157; BUN 29; CRE 1.54; GFR 45; CA 7.8; TP cp 5.6; ALB 1.9; GLOB 3.7; A/G 0.5. 07/22 23:21 Order name: Lactate w/ 2H reflex if indic.; Complete Time: 00:15 cp 07/23 00:16 Interpretation: Reviewed. 07/22 23:21 Order name: Urinalysis w/ reflexes; Complete Time: 00:06 cp 07/22 23:21 Order name: COVID-19 Ag + Flu A+B Ag; Complete Time: 01:00 07/22 23:21 Order name: Troponin High Sensitivity; Complete Time: 01:00 07/23 01:00 Interpretation: Troponin HS 96.6; Reviewed. 07/23 00:00 Order name: Manual Differential; Complete Time: 02:47 EDMS 07/23 02:47 Interpretation: Abnormal: BANDS [F] 33. 07/23 00:18 Order name: Ghost Lactate-NO COLLECT Timer; Complete Time: 02:47 EDMS 07/23 01:08 Order name: Protime (+INR); Complete Time: 02:47 EDMS 07/23 02:47 Interpretation: Abnormal: PT 14.8. 07/23 01:08 Order name: PTT, Activated Partial Thromb; Complete Time: 02:47 EDMS 07/23 02:54 Order name: Lactate Sepsis 2 HR Follow-up; Complete Time: 04:56 EDMS 07/23 03:14 Order name: Spinal Fluid Profile; Complete Time: 04:56 07/23 04:57 Interpretation: Reviewed. 07/23 03:20 Order name: Body Fluid Cell Count; Complete Time: 04:56 EDMS 07/23 03:21 Order name: CSF Culture [facility] 07/23 17:27 Order name: Gram Stain--Aerobic Bottle [facility] 07/23 17:27 Order name: Gram Stain--Anaerobic Bottle [facility] 07/23 17:30 Order name: Gram Stain--Aerobic Bottle [facility] 07/23 17:30 Order name: Gram Stain--Anaerobic Bottle [facility] 07/22 23:21 Order name: Chest Single View XRAY 07/22 23:21 Order name: CT Head Brain wo Cont cp 07/23 00:08 Order name: CT Chest, Abdomen, Pelvis - W/Contrast 07/22 23:21 Order name: EKG; Complete Time: 23:22 cp 07/22 23:21 Order name: Accucheck; Complete Time: 23:57 cp 07/22 23:21 Order name: Cardiac monitoring; Complete Time: 23:57 cp 07/22 23:21 Order name: EKG - Nurse/Tech; Complete Time: 23:57 cp 07/22 23:21 Order name: IV Saline Lock - Large Bore; Complete Time: 23:57 cp 07/22 23:21 Order name: Labs collected and sent; Complete Time: 23:57 cp 07/22 23:21 Order name: O2 Per Protocol; Complete Time: 23:57 cp 07/22 23:21 Order name: O2 Sat Monitoring; Complete Time: 23:57 cp 07/22 23:21 Order name: Vital Signs; Complete Time: 23:57 cp 07/22 23:21 Order name: Benavidez; Complete Time: 23:57 07/23 00:18 Order name: Misc. Order: RECOLLECT BLUE TOP; Complete Time: 01:05 rv1 EC/17 23:57 Rate is 88 beats/min. Rhythm is regular. MI interval is prolonged at 234 msec. QRS cp interval is prolonged at 170 msec. QT interval is normal. Interpreted by me. Reviewed by me. Administered Medications: 07/23 05:42 Discontinued: ns 0.9% 1000 ml IV at 75 ml/hr continuous; to be given as a bolus over 60 todd minutes 00:03 Not Given (2000ml administered PTAa): ns 0.9% (30 ml/kg) 30 ml/kg IV at bolus once; lg3 Sepsis Protocol; to be given as a bolus over 90 minutes 00:20 CANCELLED (Physician Discretion): ns 0.9% 1000 ml IV at 125 ml/hr continuous; to be lg3 given as a bolus over 60 minutes 00:21 Drug: NS 0.9% IV 1000 ml IV at 75 ml/hr continuous; to be given as a bolus over 60 lg3 minutes Route: IV; Rate: 75 ml/hr; Site: right forearm; 06:35 Follow up: Response: No adverse reaction; IV Status: Order to discontinue infusion; IV lg3 Intake: 500ml 03:44 Drug: Potassium Chloride IV 20 mEq IV at calculated rate once; administer over 1-2 lg3 hours Route: IV; Rate: calculated rate; Site: right forearm; 06:35 Follow up: Response: No adverse reaction; IV Status: Completed infusion; IV Intake: lg3 100ml 06:35 Drug: NS 0.9% with KCl IV 20 mEq/L 1000 ml IV at 125 ml/hr continuous Route: IV; Rate: lg3 125 ml/hr; Site: right forearm; 14:35 Follow up: IV Status: Completed infusion; IV Intake: 1000ml aa5 07:42 Drug: Potassium PO Effervescent Tablet 50 mEq PO once; dissolve in 4 ounces of water or aa5 juice Route: PO; 09:00 Follow up: Response: No adverse reaction aa5 14:38 Drug: Rocephin IV 1 grams IV at calculated rate once; Given slow IV push per pharmacy aa5 instructions Route: IV; Rate: calculated rate; Site: right forearm; 15:08 Follow up: Response: No adverse reaction; IV Status: Completed infusion aa5 17:52 Drug: vancoMYCIN IVPB 1 grams IVPB once over 2 hrs Route: IVPB; Infused Over: 2 hrs; aa5 Site: right forearm; 18:00 Follow up: Response: No adverse reaction aa5 18:00 Follow up: IV Status: Infusion continued upon transfer aa5 Disposition: 03:14 Co-signature as Attending Physician, Jose Manuel CLAROS I agree with the assessment and plan todd of care. 18:29 Critical Care:. cp Disposition Summary: 07/23/24 05:00 Transfer Ordered Notes: Transfer Location: [facility] [place] cp Reason: Higher level of care cp Condition: Fair cp Problem: new cp Symptoms: have improved cp Accepting Physician: DR Shaw(07/23/24 18:51) hb Diagnosis - Altered mental status, unspecified cp - Calculus of ureter - left cp - Abnormal levels of other serum enzymes - ELEVATED TROPONIN todd - Hypokalemia todd - Bandemia todd Forms: - Medication Reconciliation Form cp - SBAR form cp Critical care time excluding procedures: 18:29 Critical care time: Bedside Care: 15 minutes, Consultation: 35 minutes. Total time: 50 cp minutes Signatures: Dispatcher [employer] EDMS Jose Manuel De La Cruz MD MD cha Calderon, Audri, RN RN aa5 Jose Manuel Hough PA PA cp Maria Esther Gupta, RN RN hb Mary Pfeiffer RN RN lg3 Lotus Cline RN RN ld1 Nereida Sierra rv1 Corrections: (The following items were deleted from the chart) 00:20 00:17 NS 0.9% IV 1000 ml IV at 125 ml/hr continuous; to be given as a bolus over 60 lg3 minutes ordered. lg3 00:20 00:17 NS 0.9% IV 1000 ml IV at 125 ml/hr continuous; to be given as a bolus over 60 lg3 minutes given. lg3 00:20 00:20 NS 0.9% IV 1000 ml IV at 125 ml/hr continuous; to be given as a bolus over 60 lg3 minutes ordered. lg3 00:38 07/22 23:25 Associated signs and symptoms: Pertinent positives: weakness, cp cp 07/23 01:07 07/22 23:22 PROTIME (+INR)+COAG.LAB.BRZ ordered. EDMS EDMS 07/23 01:07 07/22 23:22 PTT, ACTIVATED+COAG.LAB.BRZ ordered. EDMS EDMS 07/23 01:07 00:06 PROTIME (+INR)+COAG.LAB.BRZ reviewed. cp EDMS 05:38 05:00 doctor olegario todd 05:40 05:38 doctor todd brooks 05:40 05:40 doctor todd brooks 05:41 05:40 doctor VALERIA brooks cp 18:51 05:41 DR Valeria melvin hb
--- NOTE | 2024-07-23 05:01 | ER ---
Nurse's Notes [facility] Name: Georgi Soriano Age: 79 yrs Sex: Male : 1945 Arrival Date: 07/22/2024 Time: 23:01 Bed 2 Private MD: Diagnosis: Altered mental status, unspecified;Calculus of ureter-left;Abnormal levels of other serum enzymes-ELEVATED TROPONIN;Hypokalemia;Bandemia Presentation: 07/22 23:28 Chief complaint: Patient states: PT SENT TO ER DUE TO POSSIBLE SEIZURE. PT HAS br2 DEMENTIA, UNKNOWN NORMAL STATE. PT HAD A FEVER FOR EMS OF 105.1. EMS ADMINISTERED NS 2000ML, TYLENOL 1G, CEFIPIME 2G IV PER EMS. Coronavirus screen: Client denies travel out of the [place] in the last 14 days. Ebola Screen: Patient denies exposure to infectious person. Initial Sepsis Screen: Does the patient meet any 2 criteria? Temp <36.0*C (96.8*F)) or > 38.3*C (100.9*F). Altered Mental Status. HR > 90 bpm. Does the patient have a suspected source of infection? No. Patient's initial sepsis screen is negative. Risk Assessment: Do you want to hurt yourself or someone else? Patient reports no desire to harm self or others. Onset of symptoms is unknown. 23:28 Method Of Arrival: EMS: [facility] br2 23:28 Acuity: TAMMY 2 br2 Triage Assessment: 23:28 General: Appears slender, Behavior is flat. Pain: Unable to use pain scale. br2 Historical: - Allergies: 23:52 Unable to obtain; lg3 - Home Meds: 23:52 Unable to obtain [Active]; lg3 - PMHx: 23:52 Unable to Obtain; lg3 - PSHx: 23:52 Unable to Obtain; lg3 - Immunization history:: Adult Immunizations unknown. - Infectious Disease History:: unknown. AMS. - Social history:: Smoking status: unknown. Screenin:52 [facility] ED Fall Risk Assessment (Adult) History of falling in the last 3 months, lg3 including since admission No falls in past 3 months (0 pts) Confusion or Disorientation Yes (5 pts) Intoxicated or Sedated No (0 pts) Impaired Gait Yes (1 pt) Mobility Assist Device Used Yes (1 pt) Altered Elimination Yes (1 pt) Score/Fall Risk Level 3 or more points = High Risk Oriented to surroundings, Maintained a safe environment, Educated pt \\T\\ family on fall prevention, incl call for assistance when getting out of bed, Assessed \\T\\ reinforced patient's understanding of fall precautions, Provided non-skid footwear. Abuse screen: Denies threats or abuse. Denies injuries from another. Nutritional screening: No deficits noted. Tuberculosis screening: No symptoms or risk factors identified. Assessment: 23:35 General: Appears in no apparent distress. comfortable, Behavior is calm, cooperative. lg3 Pain: Denies pain. Neuro: Bush Agitation-Sedation Scale (RASS): 0 - Alert and Calm Level of Consciousness is awake, alert, confused, Oriented to person. Cardiovascular: No deficits noted. Denies chest pain, shortness of breath, Heart tones S1 S2 present Capillary refill < 3 seconds Clubbing of nail beds is absent JVD is absent Patient's skin is warm and dry. Respiratory: Airway is patent Respiratory effort is even, unlabored, Respiratory pattern is regular, symmetrical, Breath sounds with crackles bilaterally. GI: No deficits noted. No signs and/or symptoms were reported involving the gastrointestinal system. Abdomen is flat, non-distended, Bowel sounds present X 4 quads. Abd is soft and non tender X 4 quads. : No signs and/or symptoms were reported regarding the genitourinary system. EENT: No deficits noted. No signs and/or symptoms were reported regarding the EENT system. Derm: No deficits noted. No signs and/or symptoms reported regarding the dermatologic system. Skin is intact, is thin, Skin is dry, Skin is normal, Skin temperature is warm. Musculoskeletal: No signs and/or symptoms reported regarding the musculoskeletal system. Circulation, motion, and sensation intact. Range of motion: intact in all extremities. 07/23 00:21 Reassessment: Patient appears in no apparent distress at this time. No changes from lg3 previously documented assessment. Patient and/or family updated on plan of care and expected duration. Pain level reassessed. 02:16 Reassessment: Patient appears in no apparent distress at this time. No changes from lg3 previously documented assessment. Patient and/or family updated on plan of care and expected duration. Pain level reassessed. 03:42 Reassessment: Patient appears in no apparent distress at this time. No changes from lg3 previously documented assessment. Patient and/or family updated on plan of care and expected duration. Pain level reassessed. Patient denies pain at this time. 06:45 Reassessment: Patient appears in no apparent distress at this time. No changes from lg3 previously documented assessment. Patient and/or family updated on plan of care and expected duration. Pain level reassessed. 07:30 Reassessment: Pt sleeping, easy to awake to verbal stimuli, A\\T\\O x person only, pt is aa5 pleasant, additional warm blankets provided for comfort. Pt awaiting transfer. . 09:00 Reassessment: Pt sleeping . aa5 10:30 Reassessment: Pt sleeping, easy to awaken to verbal stimuli. . aa5 12:00 Neuro: Level of Consciousness is awake, confused, Oriented to person. Respiratory: aa5 Airway is patent Respiratory effort is even, unlabored, Respiratory pattern is regular, symmetrical. Derm: Skin is dry, Skin is normal, Skin temperature is warm. 13:30 Reassessment: Pt cleaned of large soft bowel movement, clean brief applied. . aa5 15:00 Neuro: Level of Consciousness is awake, confused. Respiratory: Airway is patent aa5 Respiratory effort is even, unlabored, Respiratory pattern is regular, symmetrical. Derm: Skin is dry, Skin is normal, Skin temperature is warm. 16:30 Neuro: Level of Consciousness is awake, confused. Respiratory: Airway is patent aa5 Respiratory effort is even, unlabored, Respiratory pattern is regular, symmetrical. Derm: Skin is pink, warm \\T\\ dry. 17:54 Reassessment: Attempted to Call report to [facility], my call was placed on hold aa5 for 20 minutes. . 17:55 Reassessment:. aa5 17:55 Neuro: Level of Consciousness is awake, alert, confused, Oriented to person. aa5 Respiratory: Airway is patent Respiratory effort is even, unlabored, Respiratory pattern is regular, symmetrical. Derm: Skin is dry, Skin is normal, Skin temperature is warm. 18:00 Reassessment: Pt lives at [facility] (assisted living facility) in aa[address] [place], [place], spoke to Scarlett and notified of pt's transfer to [facility], states only family is pt's sister Blanquita Soriano, spoke to sister Blanquita [id number] ([phone] number provided by Ivone Stevens) and states "I am not involved with his medical decisions and I should be taken off the contact list". . 19:45 Reassessment: Report was given to Estela nurse at [facility]. . aa5 Vital Signs: 07/22 23:28 BP 130 / 58; Pulse 98; Resp 18; Temp 100.6(A); Pulse Ox 96% on 2 lpm NC; Weight 54.43 br2 kg; Height 5 ft. 10 in. ; 23:52 BP 128 / 56; Pulse 95; Resp 17 S; Temp 99.9(Ca); Pulse Ox 96% 2 lpm ; lg3 07/23 02:15 BP 120 / 65; Pulse 82; Resp 16 S; Pulse Ox 98% on 2 lpm NC; lg3 03:42 BP 124 / 68; Pulse 85; Resp 17 S; Pulse Ox 97% on 2 lpm NC; lg3 04:58 BP 107 / 59; Pulse 69; Resp 17; Pulse Ox 95% on 2 lpm NC; cp4 06:45 BP 126 / 70; Pulse 58; Resp 20 S; Pulse Ox 100% on 2 lpm NC; lg3 07:30 BP 145 / 70; Pulse 60; Resp 18 S; Temp 97.5(Ca); Pulse Ox 97% on 2 lpm NC; aa5 09:00 BP 137 / 67; Pulse 58; Resp 18 S; Temp 98(Ca); Pulse Ox 100% on 2 lpm NC; aa5 10:30 BP 135 / 58; Pulse 59; Resp 18 S; Temp 98.2(Ca); Pulse Ox 100% on 2 lpm NC; aa5 11:30 BP 141 / 71; Pulse 64; Resp 18 S; Temp 98.2(Ca); Pulse Ox 100% on 2 lpm NC; aa5 13:00 BP 137 / 64; Pulse 62; Resp 16 S; Temp 98.2(Ca); Pulse Ox 100% on 2 lpm NC; aa5 14:30 BP 153 / 72; Pulse 64; Resp 18 S; Temp 99(Ca); Pulse Ox 100% on 2 lpm NC; aa5 16:00 BP 163 / 84; Pulse 65; Resp 16 S; Temp 98.5(Ca); Pulse Ox 100% on 2 lpm NC; aa5 17:30 BP 161 / 83; Pulse 71; Resp 16 S; Temp 98.2(Ca); Pulse Ox 100% on 2 lpm NC; aa5 07/22 23:28 Body Mass Index 17.22 (54.43 kg, 177.8 cm) br2 ED Course: 07/22 23:09 Patient arrived in ED. rv1 23:20 Jose Manuel Hough PA is PHCP. cp 23:20 Jose Manuel De La Cruz MD is Attending Physician. cp 23:23 Mary Pfeiffer, MAGO is Primary Nurse. lg3 23:28 Arm band placed on. br2 23:32 Triage completed. br2 23:36 Initial lab(s) drawn, by ED staff, sent to lab. First set of blood cultures drawn by ED lg3 staff, Second set of blood cultures drawn by ED staff, Urine collected: Benavidez catheter specimen, clear, EKG done, by ED staff, reviewed by Jose Manuel CLAROS COVID swab sent to lab. Flu and/or RSV swab sent to lab. 23:52 Patient has correct armband on for positive identification. Placed in gown. Bed in low lg3 position. Call light in reach. Side rails up X2. Client placed on continuous cardiac and pulse oximetry monitoring. NIBP monitoring applied. refrigeration service technician on. Door closed. Noise minimized. Warm blanket given. Pillow given. Cleaned of incontinence. Linen changed. 23:52 Maintain EMS IV. Dressing intact. Good blood return noted. Site clean \\T\\ dry. Gauge \\T\\ lg 3 site: 20G Bilateral forearm. Flushed with 10 mL NS. 23:52 Benavidez cath inserted, using sterile technique, 14 Fr., by wy, balloon inflated, to lg3 gravity drainage, urine specimen collected. 07/23 00:01 Chest Single View XRAY In Process Unspecified. EDMS 01:13 CT Head Brain wo Cont In Process Unspecified. EDMS 01:13 CT Chest, Abdomen, Pelvis - W/Contrast In Process Unspecified. EDMS 03:00 Provided Education on: Lumbar Puncture. cp4 03:10 Assist provider with lumbar puncture: Set up LP tray. Performed by Jose Manuel Page PA CSF is lg3 clear. Sample collected. Sample sent to lab. Puncture site dressed with 4X4s, Procedure was successful. Patient tolerated well. 18:00 Patient transferred, IV remains in place. aa5 Administered Medications: 05:42 Discontinued: ns 0.9% 1000 ml IV at 75 ml/hr continuous; to be given as a bolus over 60 todd minutes 00:03 Not Given (2000ml administered PTAa): ns 0.9% (30 ml/kg) 30 ml/kg IV at bolus once; lg3 Sepsis Protocol; to be given as a bolus over 90 minutes 00:20 CANCELLED (Physician Discretion): ns 0.9% 1000 ml IV at 125 ml/hr continuous; to be lg3 given as a bolus over 60 minutes 00:21 Drug: NS 0.9% IV 1000 ml IV at 75 ml/hr continuous; to be given as a bolus over 60 lg3 minutes Route: IV; Rate: 75 ml/hr; Site: right forearm; 06:35 Follow up: Response: No adverse reaction; IV Status: Order to discontinue infusion; IV lg3 Intake: 500ml 03:44 Drug: Potassium Chloride IV 20 mEq IV at calculated rate once; administer over 1-2 lg3 hours Route: IV; Rate: calculated rate; Site: right forearm; 06:35 Follow up: Response: No adverse reaction; IV Status: Completed infusion; IV Intake: lg3 100ml 06:35 Drug: NS 0.9% with KCl IV 20 mEq/L 1000 ml IV at 125 ml/hr continuous Route: IV; Rate: lg3 125 ml/hr; Site: right forearm; 14:35 Follow up: IV Status: Completed infusion; IV Intake: 1000ml aa5 07:42 Drug: Potassium PO Effervescent Tablet 50 mEq PO once; dissolve in 4 ounces of water or aa5 juice Route: PO; 09:00 Follow up: Response: No adverse reaction aa5 14:38 Drug: Rocephin IV 1 grams IV at calculated rate once; Given slow IV push per pharmacy aa5 instructions Route: IV; Rate: calculated rate; Site: right forearm; 15:08 Follow up: Response: No adverse reaction; IV Status: Completed infusion aa5 17:52 Drug: vancoMYCIN IVPB 1 grams IVPB once over 2 hrs Route: IVPB; Infused Over: 2 hrs; aa5 Site: right forearm; 18:00 Follow up: Response: No adverse reaction aa5 18:00 Follow up: IV Status: Infusion continued upon transfer aa5 Medication: 18:00 VIS not applicable for this client. aa5 Intake: 06:35 IV: 100ml; Total: 100ml. lg3 06:35 IV: 500ml; Total: 600ml. lg3 14:35 IV: 1000ml; Total: 1600ml. aa5 Output: 14:30 Urine: 700ml (Benavidez); Total: 700ml. aa5 Outcome: 05:00 ER care complete, transfer ordered by MD. cp 17:55 Transferred by ground EMS to [facility] [place] [facility], Transfer form completed. aa5 X-rays sent w/ patient. Note: Report given to [facility] 17:55 Condition: stable 17:55 Instructed on the need for transfer, 18:51 Patient left the ED. hb Signatures: Dispatcher [employer] EDMS Quin Burk RN RN aa5 Jose Manuel Hough PA PA cp Maria Esther Gupta RN RN Mary Pfeiffer RN RN lg3 Nereida Sierra rv1 Nhi Camilo cp4 Liliana French RN RN br2 Corrections: (The following items were deleted from the chart) 00:02 04/17 23:28 Chief complaint: Patient states: PT SENT TO ER DUE TO POSSIBLE SEIZURE. PT lg3 HAS DEMENTIA, UNKNOWN NORMAL STATE. PT HAD A FEVER FOR EMS OF 105.1. EMS ADMINISTERED NS 1500ML, TYLENOL 1G, CEFIPIME 2G IV PER EMS. br2 07/23 00:20 00:17 NS 0.9% IV 1000 ml IV at 125 ml/hr in right forearm lg3 lg3 02:16 00:21 Reassessment: Patient appears in no apparent distress at this time. No changes lg3 from previously documented assessment. Patient and/or family updated on plan of care and expected duration. Pain level reassessed. Patient is alert, oriented x 3, equal unlabored respirations, skin warm/dry/pink. lg3 13:32 13:00 BP 137 / 64; Pulse 62bpm; Resp 16bpm; Spontaneous; Pulse Ox 100% 2 lpm Nasal aa5 Cannula; aa5 14:39 14:38 Rocephin IV 1 grams IV at calculated rate in right antecubital aa5 aa5
--- NOTE | 2024-07-23 05:10 | RAD REPORT ---
EXAM: CT Chest, Abdomen and Pelvis With Intravenous Contrast CLINICAL HISTORY: The patient is 79 years old and is Male; Fever. TECHNIQUE: Axial computed tomography images of the chest, abdomen and pelvis with intravenous contr ast. Sagittal and coronal reformatted images were created and reviewed. This CT exam was performed using one or more of the following dose reduction techniques: automated exposure control, adjustment of the mA and/or kV according to patient size, and/or use of iterative reconstruction technique. COMPARISON: XR Chest 07/22/2024, 11:55:43 PM. FINDINGS: CHEST: Lungs: Dependent changes in the lungs. Pleural space: Unremarkable. No significant effusion. No pneumothorax. Heart: Mild cardiac enlargement. No significant pericardial fluid. ABDOMEN: Liver: Unremarkable. No mass. Gallbladder and bile ducts: Gallbladder is contracted or absent. No ductal dilation. Pancreas: No findings to suggest acute pancreatitis. No mass visualized. No ductal dilation. Spleen: Unremarkable. No splenomegaly. Adrenals: Unremarkable. No mass. Kidneys and ureters: 7.2 x 5.8 x 8.8 mm calculus in the left proximal ureter with hydronephrosis. No findings to suggest pyelonephritis. Delayed left nephrogram. Punctate right nephrolithiasis. The right kidney is otherwise unremarkable. No solid mass. Stomach and bowel: Colonic diverticulosis. Stomach is not well distended. No bowel dilatation or obstruction. No bowel wall thickening. PELVIS: Appendix: No findings to suggest acute appendicitis. Bladder: Benavidez catheter in the bladder. No bladder calculus. Reproductive: Enlarged prostate gland. CHEST, ABDOMEN and PELVIS: Intraperitoneal space: Unremarkable. No significant fluid collection. No free air. Bones/joints: Thoracic kyphoscoliosis. No vertebral compression fracture. Degenerative changes in the lower lumbar spine. No acute fracture in pelvis or proximal femora. No dislocation. Soft tissues: Small left inguinal hernia containing fat only. Vasculature: Unremarkable. No aortic aneurysm. Lymph nodes: Unremarkable. No enlarged lymph nodes. IMPRESSION: 1. 7.2 x 5.8 x 8.8 mm calculus in the left proximal ureter with hydronephrosis. 2. Enlarged prostate gland. 3. Benavidez catheter in the bladder. 4. Colonic diverticulosis. 5. No acute cardiopulmonary findings. 6. Additional non-emergent findings as above. Electronically signed by: Luciana Guardado MD 07/23/2024 04:49 AM CDT RP V2 Due to temporary technical issues with the [email or web address] reporting system, reports are being matthieu d by the in-house radiologist without review as a courtesy to ensure prompt reporting the interpreting radiologist is fully responsible for the content of the report. Transcribed Date/Time: 07/23/2024 5:09 AM
--- NOTE | 2024-07-23 05:10 | RAD REPORT ---
EXAM DESCRIPTION: CT of the head without contrast CLINICAL HISTORY: CONFUSED COMPARISON: 03/03/2024 TECHNIQUE: Axial CT of the head obtained from the skull apex to the skull base without contrast. This exam was performed according to our departmental dose-optimization program, which includes automated exposure control, adjustment of the mA and/or kV according to patient size and/or use of it erative reconstruction technique. FINDINGS: No acute intracranial hemorrhage identified. Areas of encephalomalacia in the frontal and temporal lo bes, left greater than right, and posterior left thalamus are stable. No mass, mass effect, midline shift, or abnormal extra-axial fluid collection. No CT evidence of acute ischemia identified, however , MRI is more sensitive in the assessment of acute ischemic change. Scattered areas of hypodensity in the supratentorial white matter are nonspecific though likely related to chronic small vessel ischemic change. The ventricular system and sulcal spaces are enlarged, but proportionate, consistent with diffuse atrophy. Basilar cisterns are patent. Intracranial atherosclerosis. Visualized orbits and globes show no acute abnormality. No skull fracture identified. The visualize d paranasal sinuses and mastoid air cells are well aerated. IMPRESSION: No acute intracranial abnormality on noncontrast CT. Chronic appearing findings are grossly stable. Electronically signed by: Tomasa Guy MD 07/23/2024 04:36 AM CDT RP Due to temporary technical issues with the PACS/[employer] reporting system, reports are being matthieu d by the in-house radiologist without review as a courtesy to ensure prompt reporting the interpreting radiologist is fully responsible for the content of the report. Transcribed Date/Time: 07/23/2024 5:09 AM
--- NOTE | 2024-07-23 05:34 | RAD REPORT ---
EXAM: XR Chest, 1 View CLINICAL HISTORY: The patient is 79 years old and is Male; FEVER TECHNIQUE: Frontal view of the chest. COMPARISON: No relevant prior studies available. FINDINGS: Lungs: Unremarkable. No consolidation. Pleural space: Unremarkable. No pneumothorax. Heart: Unremarkable. Mediastinum: Unremarkable. Normal mediastinal contour. Bones/joints: No acute findings. IMPRESSION: No acute findings in the chest. Electronically signed by: Sharad Rodriguez MD 07/23/2024 01:04 AM CDT 8 Due to temporary technical issues with the PACS/[employer] reporting system, reports are being matthieu d by the in-house radiologist without review as a courtesy to ensure prompt reporting the interpreting radiologist is fully responsible for the content of the report. Transcribed Date/Time: 07/23/2024 5:34 AM
[2024-07-23] MEDS ORDERED: NS KCL 20MEQ 1,000 ML IV ONE (06:12)
[2024-07-23] MEDS ORDERED: NA CHLORIDE 0.9% 50 ML ONE (14:22)
[2024-07-23] MEDS ORDERED: CEFTRIAXONE 1000 MG/VIAL ONE (14:22)
[2024-07-23] MEDS ORDERED: VANCOMYCIN 1 GM/VIAL ONE (17:47)
[2024-07-23 19:26] VITALS: O2SAT 100
[2024-07-23 19:34] VITALS: BP 161/83; TEMP 98.2
== END 2024-07-23 18:51 | disposition short-term general hospital (02) ==
LOC: ER 23:01
DX: R41.82 Altered mental status, unspecified (principal); N20.1 Calculus of ureter; E87.6 Hypokalemia; D72.825 Bandemia; R79.89 Other specified abnormal findings of blood chemistry; R53.1 Weakness; Z11.52 Encounter for screening for COVID-19
CPT/HCPCS: 87040 ×2; 87070; 85025; 81001; 36415 ×2; 89050 ×2; 87205 ×4; 84157; 85610; 82945; 83605 ×2; 85730; 84484; 80053; 70450; 71260; 74177; 71045; 87428; 62270; Q9967; J3480 ×2; J3370; J7050 ×2; J7030; J0696; 93005

== ENCOUNTER 2024-11-24 00:10 | Emergency (ER) | payer BC, OTHER ==
[2024-11-24] MEDS ORDERED: ZIPRASIDONE MESYLA 20 MG/VIAL IM ONE ×2 (00:23→02:26)
[2024-11-24] MEDS ORDERED: NA CHLORIDE 0.9% 1,000 ML ONE (00:24)
[2024-11-24] MEDS ORDERED: WATER FOR INJ,STERILE 10 ML ONE ×2 (00:24→02:26)
[2024-11-24 01:02] LABS: Absolute Lymphocytes (CBC) 0.7 K/uL (0.7-4.9); Hematocrit 39.2 % (39.6-49.0); Hemoglobin 13.2 g/dL (13.6-17.9); MCH 28.7 pg (27.0-35.0); MCHC 33.7 g/dL (32.0-36.0); MCV 85.4 fL (80-100); MPV 8.9 fL (7.6-11.3); Nucleated RBC Absolute Count 0.0 (0-0); Nucleated Red Blood Cells % 0.0 % (0-0); RBC Red Blood Cell Count 4.59 M/uL (4.33-5.43); White Blood Count 11.50 thou/uL (4.3-10.9)
[2024-11-24 01:03] LABS: ALT/SGPT 18.0 U/L (16-61); Albumin 3.0 g/dL (3.4-5.0); Albumin/Globulin Ratio 0.8 (1.1-1.8); Alkaline Phosphatase 78.0 U/L (45-117); Anion Gap 11.7 mEq/L (5.0-15.0); BUN Blood Urea Nitrogen 20.0 mg/dL (7-18); Globulin 3.9 g/dL (2.3-3.5); Glucose Level 136.0 mg/dL (74-106); Lipase 28.0 U/L (13-75)
[2024-11-24 01:05] LABS: AST/SGOT 18.0 U/L (15-37); Potassium 3.7 mEq/L (3.5-5.1)
--- NOTE | 2024-11-24 03:45 | RAD REPORT ---
INDICATION: Pulled out ureteral stent COMPARISON: No existing relevant imaging studies are available TECHNIQUE: Unenhanced CT of the abdomen and pelvis performed per protocol. Oral contrast was not administered. M ultiplanar reconstructions were provided. Dose reduction techniques were utilized for this exam including automated exposure control, adjustmen ts to mA and/or kV according to patient's size, and the use of iterative reconstruction techniques. FINDINGS: Lack of intravenous contrast limits evaluation of the viscera and vasculature. LOWER CHEST: Lung bases are clear. LIVER: Unremarkable. SPLEEN: Unremarkable. PANCREAS: Unremarkable. ADRENALS: Unremarkable. KIDNEYS: Moderate left-sided hydroureteronephrosis with periureteral inflammatory stranding. 3 mm non obstructive calculus within the lower pole of the right kidney. GALLBLADDER: Unremarkable. VESSELS: Scattered atherosclerotic plaque within the abdominal aorta and iliac vessels without aneury smal dilatation. BOWEL: Small left inguinal hernia containing fat and a portion of sigmoid colon without obstruction. Colonic diverticulosis without evidence of diverticulitis. APPENDIX: No pericecal inflammatory changes to suggest appendicitis. FLUID: No free fluid or abnormal fluid collection. ADENOPATHY: No pathologic adenopathy. BLADDER: Decompressed around a Benavidez catheter bulb. PELVIS: Prostate is enlarged. BONES: No acute bony abnormality. Multilevel degenerative changes throughout the spine. Degenerative changes of the hips. SOFT TISSUES: Small fat-containing umbilical hernia. Postsurgical changes involving the right inguina l region. IMPRESSION: 1. Moderate left-sided hydroureteronephrosis with periureteral inflammatory stranding, likely relat ed to history of recent ureteral stent placement. 2. Nonobstructive right-sided nephrolithiasis. 3. Small left inguinal hernia containing fat and a portion of sigmoid colon without obstruction. 4. Prostatomegaly. Electronically signed by: Margarito Lovell DO 11/24/2024 02:47 AM CDT NR Due to temporary technical issues with the PACS/[employer] reporting system, reports are being matthieu d by the in-house radiologist without review as a courtesy to ensure prompt reporting the interpreting radiologist is fully responsible for the content of the report. Transcribed Date/Time: 11/24/2024 3:45 AM
[2024-11-24 03:55] LABS: Sqamous Epithelial None Seen /HPF (None Seen); Urine Micro Reflex YN NO BILL NO MICROSCOPIC
[2024-11-24] MEDS ORDERED: CEFTRIAXONE 1000 MG/VIAL ONE (04:44)
--- NOTE | 2024-11-24 05:29 | EDPHYS ---
Physician Documentation [facility] Name: Georgi Soriano Age: 79 yrs Sex: Male : 1945 Arrival Date: 11/24/2024 Time: 00:10 Bed 6 Private MD: ED Physician Josesito Sabillon HPI: 11/24 00:18 This 79 yrs old Male presents to ER via Unassigned with complaints of Urinary sp4 Problem. 04:33 Patient presents from assisted living facility. Patient has indwelling Benavidez catheter. sp4 Patient apparently pulled out his ureteral stent. Moderate to severe dementia. Not able to collect full history.. Historical: - Allergies: 00:22 Unable to obtain; bm8 - Home Meds: 00:22 Unable to obtain [Active]; bm8 - PMHx: 00:22 Unable to Obtain; bm8 - PSHx: 00:22 kidney stent palcement; bm8 - Immunization history:: Adult Immunizations up to date. - Infectious Disease History:: Denies. - Social history:: Smoking status: Patient denies any tobacco usage or history of. - Family history:: not pertinent. ROS: 04:34 Constitutional: Negative for fever, chills, and weight loss, positive for indwelling sp4 Benavidez catheter, positive for dislodged ureteral stent 04:34 All other systems are negative, Exam: 04:34 Constitutional: Elderly frail male, moderate dementia, signs of physical sp4 deconditioning Head/Face: Normocephalic, atraumatic. Eyes: Pupils equal round and reactive to light, extra-ocular motions intact. Lids and lashes normal. Conjunctiva and sclera are not injected. Cornea within normal limits. Periorbital areas with no swelling, redness, or edema. ENT: Nares patent. No nasal discharge, no septal abnormalities noted. Tympanic membranes are normal and external auditory canals are clear. Oropharynx with no redness, swelling, or masses, exudates, or evidence of obstruction, uvula midline. Mucous membranes moist. Neck: Trachea midline, no thyromegaly or masses palpated, and no cervical lymphadenopathy. Supple, full range of motion without nuchal rigidity, or vertebral point tenderness. Chest/axilla: Normal chest wall appearance and motion. Nontender with no deformity. No lesions are appreciated. Cardiovascular: Regular rate and rhythm with a normal S1 and S2. No gallops, murmurs, or rubs. No pulse deficits. Respiratory: Lungs have equal breath sounds bilaterally, clear to auscultation and percussion. No rales, rhonchi or wheezes noted. No increased work of breathing, no retractions or nasal flaring. Abdomen/GI: Soft, with normal bowel sounds. No distension or tympany. No guarding or rebound. No evidence of tenderness throughout. Back: No spinal tenderness. No costovertebral tenderness. Male : Normal genitalia with no discharge or lesions. Indwelling urinary catheter. There is ureteral stent that is completely dislodged and is on the outside with strings tied to the catheter. Skin: Warm, dry with normal turgor. Normal color with no rashes, no lesions, and no evidence of cellulitis. MS/ Extremity: Pulses equal, no cyanosis. Neurovascular intact. Full, normal range of motion. Neuro: Awake and alert, GCS 14 Cranial nerves II-XII grossly intact. Motor strength 5/5 in all extremities. Sensory grossly intact. Vital Signs: 00:10 BP 136 / 84; Pulse 98; Resp 18; Temp 98.1; Pulse Ox 98% ; Weight 70 kg; Height 5 ft. 10 bm8 in. ; Pain 0/10; 01:23 BP 126 / 60; Pulse 83; Resp 17; Pulse Ox 100% ; jj7 01:44 BP 132 / 65; Pulse 78; Resp 17; Temp 98.1; Pulse Ox 96% ; Pain 0/10; bm8 02:54 BP 159 / 70; Pulse 87; Resp 18; Pulse Ox 97% ; jj7 03:50 BP 162 / 70; Pulse 78; Resp 15; Temp 98.1; Pulse Ox 100% ; Pain 0/10; bm8 06:13 BP 134 / 67; Pulse 72; Resp 18; Temp 98.1; Pulse Ox 100% on 4 lpm NC; Pain 0/10; jj7 00:10 Body Mass Index 22.14 (70.00 kg, 177.8 cm) bm8 00:10 Pain Scale: Adult bm8 01:44 Pain Scale: Adult bm8 03:50 Pain Scale: Adult bm8 06:13 Pain Scale: Adult jj7 Neymar Coma Score: 01:44 Eye Response: spontaneous(4). Motor Response: obeys commands(6). Verbal Response: bm8 oriented(5). Total: 15. 03:50 Eye Response: spontaneous(4). Motor Response: obeys commands(6). Verbal Response: bm8 oriented(5). Total: 15. 04:34 Eye Response: spontaneous(4). Motor Response: obeys commands(6). Verbal Response: sp4 oriented(5). Total: 15. 06:13 Eye Response: to pain(2). Motor Response: obeys commands(6). Verbal Response: jj7 confused(4). Total: 12. MDM: 00:20 Medical Screening Exam initiated sp4 04:36 Differential diagnosis: nonspecific abdominal pain, UTI, urinary retention, Benavidez sp4 catheter problem, prostatitis, urethritis. Data reviewed: vital signs, nurses notes, EMS record, old medical records, lab test result(s), radiologic studies, CT scan. ED course: INDICATION: Pulled out ureteral stent COMPARISON: No existing relevant imaging studies are available TECHNIQUE: Unenhanced CT of the abdomen and pelvis performed per protocol. Oral contrast was not administered. Multiplanar reconstructions were provided. Dose reduction techniques were utilized for this exam including automated exposure control, adjustments to mA and/or kV according to patient's size, and the use of iterative reconstruction techniques. FINDINGS: Lack of intravenous contrast limits evaluation of the viscera and vasculature. LOWER CHEST: Lung bases are clear. LIVER: Unremarkable. SPLEEN: Unremarkable. PANCREAS: Unremarkable. ADRENALS: Unremarkable. KIDNEYS: Moderate left-sided hydroureteronephrosis with periureteral inflammatory stranding. 3 mm nonobstructive calculus within the lower pole of the right kidney. GALLBLADDER: Unremarkable. VESSELS: Scattered atherosclerotic plaque within the abdominal aorta and iliac vessels without aneurysmal dilatation. BOWEL: Small left inguinal hernia containing fat and a portion of sigmoid colon without obstruction. Colonic diverticulosis without evidence of diverticulitis. APPENDIX: No pericecal inflammatory changes to suggest appendicitis. FLUID: No free fluid or abnormal fluid collection. ADENOPATHY: No pathologic adenopathy. BLADDER: Decompressed around a Benavidez catheter bulb. PELVIS: Prostate is enlarged. BONES: No acute bony abnormality. Multilevel degenerative changes throughout the spine. Degenerative changes of the hips. SOFT TISSUES: Small fat-containing umbilical hernia. Postsurgical changes involving the right inguinal region. IMPRESSION: 1. Moderate left-sided hydroureteronephrosis with periureteral inflammatory stranding, likely related to history of recent ureteral stent placement. 2. Nonobstructive right-sided nephrolithiasis. 3. Small left inguinal hernia containing fat and a portion of sigmoid colon without obstruction. 4. Prostatomegaly. Electronically signed by: Margarito Lovell DO 11/24/2024 02:47 AM. 05:49 Consideration of Admission/Observation Patient was admitted/placed on observation. [facility] Escalation of care including admission/observation considered. Management of patient was discussed with the following: Operations Section Manager: [place] Attending MD. ED course: Patient is stable for transfer to [facility]. Patient is stable for transfer to the [facility].. 19:06 ED course: Patient's stent was placed at the [facility]. At this time transfer back to [facility] the [facility] is appropriate for urologic consultation and restenting of the left ureter.. 11/24 00:19 Order name: CBC with Diff; Complete Time: 01: [facility] 11/24 00:19 Order name: CMP; Complete Time: : [facility] 11/24 00:19 Order name: Lipase; Complete Time: 01:29 [facility] 11/24 00:19 Order name: UA W/ Microscopic; Complete Time: 04:33 [facility] 11/24 00:19 Order name: CT Abd/Pelvis - Without Contrast [facility] 11/24 00:19 Order name: IV Saline Lock; Complete Time: 00:30 [facility] 11/24 00:19 Order name: Labs collected and sent; Complete Time: 00:30 [facility] Administered Medications: 00:32 Drug: Geodon IM 10 mg IM once Route: IM; Site: right deltoid; mf3 02:29 Follow up: Response: No adverse reaction bm8 00:32 Drug: NS 0.9% IV 1000 ml IV at 1 bolus Per protocol; to be given as a bolus over 60 mf3 minutes Route: IV; Rate: 1 bolus; Site: right antecubital; 03:51 Follow up: Response: No adverse reaction; IV Status: Completed infusion bm8 03:28 Drug: Geodon IM 10 mg IM once Route: IM; Site: left deltoid; bm8 03:51 Follow up: Response: No adverse reaction bm8 04:49 Drug: Rocephin - Rocephin (cefTRIAXone) IVPB 1 grams IVPB once over 30 mins; (mix in 50 jj7 mL NS) Route: IVPB; Infused Over: 30 mins; Site: right antecubital; 06:16 Follow up: Response: No adverse reaction; IV Status: Completed infusion jj7 05:43 Drug: Ativan IVP 1 mg IVP once Route: IVP; Site: right antecubital; bm8 06:15 Follow up: Response: No adverse reaction jj7 Disposition Summary: 11/24/24 05:28 Transfer Ordered Notes: Transfer Location: [facility] sp4 Reason: Higher level of care sp4 Condition: Stable sp4 Problem: new sp4 Symptoms: have improved sp4 Accepting Physician: [place] attending physician, (11/24/24 06:23) bm8 Diagnosis - Dislodged left ureteral stent, left hydroureteronephrosis sp4 Discharge Instructions: - Discharge Summary Sheet kmf Forms: - Medication Reconciliation Form sp4 - SBAR form kmf Signatures: Dispatcher [employer] Andre Wilks RN RN jj7 Josesito Sabillon MD MD sp4 Feng Gonzalez RN RN bm8 Lily Lozano RN RN mf3 Corrections: (The following items were deleted from the chart) 06:23 05:28 [place] attending physician, sp4 bm8
--- NOTE | 2024-11-24 05:29 | ER ---
Nurse's Notes [facility] Name: Georgi Soriano Age: 79 yrs Sex: Male : 1945 Arrival Date: 11/24/2024 Time: 00:10 Bed 6 Private MD: Diagnosis: Dislodged left ureteral stent, left hydroureteronephrosis Presentation: 11/24 00:10 Chief complaint: EMS states: Pt pulled out urinary cath stent that was placed today at 8 the [facility] in [place]. 00:10 Coronavirus screen: At this time, the client does not indicate any symptoms associated [facility] with coronavirus-19. Ebola Screen: Patient negative for fever greater than or equal to 101.5 degrees Fahrenheit, and additional compatible Ebola Virus Disease symptoms Patient denies exposure to infectious person. Patient denies travel to an Ebola-affected area in the 21 days before illness onset. No symptoms or risks identified at this time. Initial Sepsis Screen: Does the patient meet any 2 criteria? No. Patient's initial sepsis screen is negative. Does the patient have a suspected source of infection? No. Patient's initial sepsis screen is negative. Risk Assessment: Do you want to hurt yourself or someone else? Patient reports no desire to harm self or others. Onset of symptoms is unknown. 00:10 Method Of Arrival: EMS: [facility] 00:10 Acuity: TAMMY 3 8 Triage Assessment: 00:22 General: Appears in no apparent distress. comfortable, Behavior is cooperative, bm8 appropriate for age. Pain: Denies pain. EENT: No deficits noted. No signs and/or symptoms were reported regarding the EENT system. Neuro: Level of Consciousness is awake, alert, obeys commands, confused, Oriented to person. Cardiovascular: Denies chest pain, Capillary refill < 3 seconds in bilateral fingers Patient's skin is warm and dry. Respiratory: Airway is patent Respiratory effort is even, unlabored, Respiratory pattern is regular, symmetrical, Breath sounds are clear bilaterally. GI: No signs and/or symptoms were reported involving the gastrointestinal system. : urinary stent removed. Derm: No signs and/or symptoms reported regarding the dermatologic system. Musculoskeletal: No signs and/or symptoms reported regarding the musculoskeletal system. Historical: - Allergies: 00:22 Unable to obtain; bm8 - Home Meds: 00:22 Unable to obtain [Active]; bm8 - PMHx: 00:22 Unable to Obtain; bm8 - PSHx: 00:22 kidney stent palcement; bm8 - Immunization history:: Adult Immunizations up to date. - Infectious Disease History:: Denies. - Social history:: Smoking status: Patient denies any tobacco usage or history of. - Family history:: not pertinent. Screenin:34 Abuse screen: Denies threats or abuse. Nutritional screening: No deficits noted. jj7 Tuberculosis screening: No symptoms or risk factors identified. 01:44 [facility] ED Fall Risk Assessment (Adult) History of falling in the last 3 months, bm8 including since admission No falls in past 3 months (0 pts) Confusion or Disorientation Yes (5 pts) Intoxicated or Sedated No (0 pts) Impaired Gait Yes (1 pt) Mobility Assist Device Used No (0 pt) Altered Elimination No (0 pt) Score/Fall Risk Level 3 or more points = High Risk Oriented to surroundings, Maintained a safe environment, Educated pt \T\ family on fall prevention, incl call for assistance when getting out of bed, Assessed \T\ reinforced patient's understanding of fall precautions, Hourly rounding (assess needs \T\ fall precautionary measures) done, Used ambulatory aids as needed (educated on \T\ assisted with), Used gait belt as appropriate Implemented a Fall Risk Plan of Care. Assessment: 00:45 Reassessment: see triage assessment. bm8 01:44 Reassessment: Patient appears in no apparent distress at this time. Patient and/or 8 family updated on plan of care and expected duration. Pain level reassessed. pt is resting with eyes closed breathing is even unlabored with symmetrical rise and fall of chest. awaiting ct results at this time Patient denies pain at this time. 03:50 Reassessment: Patient appears in no apparent distress at this time. No changes from bm8 previously documented assessment. Patient and/or family updated on plan of care and expected duration. Pain level reassessed. Patient denies pain at this time. 06:13 Reassessment: Patient appears in no apparent distress at this time. No changes from jj7 previously documented assessment. Patient and/or family updated on plan of care and expected duration. Pain level reassessed. pt is resting with eyes closed breathing is even unlabored with symmetrical rise and fall of chest, placed on 4 l NC. Attempted to call report to NATALIIA Bradford, was placed on hold for greater than 10 mins. Patient denies pain at this time. Vital Signs: 00:10 BP 136 / 84; Pulse 98; Resp 18; Temp 98.1; Pulse Ox 98% ; Weight 70 kg; Height 5 ft. 10 bm8 in. ; Pain 0/10; 01:23 BP 126 / 60; Pulse 83; Resp 17; Pulse Ox 100% ; jj7 01:44 BP 132 / 65; Pulse 78; Resp 17; Temp 98.1; Pulse Ox 96% ; Pain 0/10; bm8 02:54 BP 159 / 70; Pulse 87; Resp 18; Pulse Ox 97% ; jj7 03:50 BP 162 / 70; Pulse 78; Resp 15; Temp 98.1; Pulse Ox 100% ; Pain 0/10; bm8 06:13 BP 134 / 67; Pulse 72; Resp 18; Temp 98.1; Pulse Ox 100% on 4 lpm NC; Pain 0/10; jj7 00:10 Body Mass Index 22.14 (70.00 kg, 177.8 cm) bm8 00:10 Pain Scale: Adult bm8 01:44 Pain Scale: Adult bm8 03:50 Pain Scale: Adult bm8 06:13 Pain Scale: Adult jj7 Neymar Coma Score: 01:44 Eye Response: spontaneous(4). Motor Response: obeys commands(6). Verbal Response: bm8 oriented(5). Total: 15. 03:50 Eye Response: spontaneous(4). Motor Response: obeys commands(6). Verbal Response: bm8 oriented(5). Total: 15. 04:34 Eye Response: spontaneous(4). Motor Response: obeys commands(6). Verbal Response: sp4 oriented(5). Total: 15. 06:13 Eye Response: to pain(2). Motor Response: obeys commands(6). Verbal Response: jj7 confused(4). Total: 12. ED Course: 00:16 Patient arrived in ED. bm8 00:18 Josesito Sabillon MD is Attending Physician. sp4 00:20 Feng Gonzalez, RN is Primary Nurse. bm8 00:22 Triage completed. bm8 00:22 Arm band placed on right wrist. bm8 00:30 Inserted saline lock: 20 gauge in right antecubital area, using aseptic technique. jj7 Blood collected. Flushed with 10 mL NS. 00:34 CBC with Diff Sent. jj7 00:34 CMP Sent. jj7 00:34 Lipase Sent. jj7 00:35 Patient has correct armband on for positive identification. Bed in low position. Call jj7 light in reach. Side rails up X2. Provided Education on: USE OF CALL PATTERSON . Client placed on continuous cardiac and pulse oximetry monitoring. NIBP monitoring applied. Lights dimmed. Warm blanket given. 01:18 CT Abd/Pelvis - Without Contrast In Process Unspecified. EDMS 01:44 No provider procedures requiring assistance completed. Patient maintains SpO2 bm8 saturation greater than 95% on room air. 04:36 [facility] 05:01 Repositioned patient. Linen changed. jj7 06:04 Oxygen administration via nasal cannula \T\ 4L/min Response to oxygen therapy: symptoms bm8 improved. 06:13 Patient transferred, IV remains in place. jj7 06:34 [facility]PT[facility] TO [facility]. REYES, J \T\[id number]. aCCEPTING ADMIN TOBI starkey \T\0549. [facility] TO TRANSFER PT. Administered Medications: 00:32 Drug: Geodon IM 10 mg IM once Route: IM; Site: right deltoid; mf3 02:29 Follow up: Response: No adverse reaction bm8 00:32 Drug: NS 0.9% IV 1000 ml IV at 1 bolus Per protocol; to be given as a bolus over 60 mf3 minutes Route: IV; Rate: 1 bolus; Site: right antecubital; 03:51 Follow up: Response: No adverse reaction; IV Status: Completed infusion bm8 03:28 Drug: Geodon IM 10 mg IM once Route: IM; Site: left deltoid; bm8 03:51 Follow up: Response: No adverse reaction bm8 04:49 Drug: Rocephin - Rocephin (cefTRIAXone) IVPB 1 grams IVPB once over 30 mins; (mix in 50 jj7 mL NS) Route: IVPB; Infused Over: 30 mins; Site: right antecubital; 06:16 Follow up: Response: No adverse reaction; IV Status: Completed infusion jj7 05:43 Drug: Ativan IVP 1 mg IVP once Route: IVP; Site: right antecubital; bm8 06:15 Follow up: Response: No adverse reaction jj7 Medication: 01:44 VIS not applicable for this client. bm8 Outcome: 05:28 ER care complete, transfer ordered by MD. hanks 06:13 Transferred by ground EMS to [facility] Transfer form completed. jj7 X-rays sent w/ patient. 06:13 Condition: stable 06:13 Instructed on the need for transfer, Demonstrated understanding of instructions, follow-up care, medications, 06:23 Patient left the ED. bm8 Signatures: Dispatcher [employer] EDAndre Stanford RN RN jj7 Josesito Sabillon MD MD sp4 Crystal Hazel Brad RN RN bm8 Lily Lozano RN RN mf3
[2024-11-24] MEDS ORDERED: LORazepam 2 MG/ML VIAL ONE (05:39)
[2024-11-24 12:02] VITALS: TEMP 98.1
[2024-11-24 12:09] VITALS: O2SAT 100
[2024-11-24 12:11] VITALS: BP 134/67
== END 2024-11-24 06:23 ==
LOC: ER 00:10
DX: T83.122A Displacement of indwelling ureteral stent, initial encounter (principal); N13.30 Unspecified hydronephrosis
CPT/HCPCS: 85025; 81001; 36415; 83690; 80053; 74176; J3486 ×2; J7030; J0696